=== PATIENT | male | born 1975 | race Asian ===

== ENCOUNTER 2017-05-23 08:29 | Emergency (ER) | payer OTHER ==
[2017-05-23 08:47] VITALS: TEMP 98.3
[2017-05-23] MEDS ORDERED: ONDANSETRON 4 MG/2 ML VIAL IVP ONE (10:04)
--- NOTE | 2017-05-23 10:05 | EDPHY ---
General Time Seen by Provider: 05/23/17 09:44 Narrative: CHIEF COMPLAINT: Left foot pain HISTORY OF PRESENT ILLNESS: Patient complains of left foot pain. First noticed this last night. It is a 10 /10 pain. It is located on the dorsum of the left foot. Radiates into the ankle only. There is no calf pain. No popliteal pain. No thigh pain. No chest pain or shortness of breath. Too painful to bear weight. Feels warm to him. No numbness. No trauma or injury. He is concerned because he has had bone transplant to that ankle 8 years ago. He is worried about infection. No previous history of venous thrombolic event. No other associated complaints or modifying factors. REVIEW OF SYSTEMS: Ten systems reviewed and are negative unless otherwise noted in the HPI PCP: Dr. Blue SPECIALISTS: Dr. Rhodes, [facility] Dr. Delacruz, [facility] PAST MEDICAL HISTORY: Multiple "bone" diagnoses, osteonecrosis left foot PAST SURGICAL HISTORY: Right knee stem cell transplant, left foot bone transplant SOCIAL HISTORY: Nonsmoker. Occasional alcohol use. No drug use. Works at [employer]. Lives independently FAMILY HISTORY: Noncontributory EXAMINATION General Appearance: Alert, no distress Head: normocephalic, atraumatic Eyes: Pupils equal and round, no conjunctival pallor or injection ENT, Mouth: Mucous membranes moist Neck: Normal inspection, supple, non-tender Respiratory: Lungs are clear to auscultation. No wheeze, rhonchi or crackles Cardiovascular: Regular rate and rhythm. No murmur. Symmetric DP pulses 2+. Symmetric PT pulses 2+. Neurological: A&O, nonfocal, strength is 5/5 in both ankles and knees. No foot drop. Normal proprioception left great toe Skin: Warm and dry, no rash. Mild warmth to the dorsal left foot. No fluctuance or induration. Very mild erythema of the dorsum left foot. Extremities: Tenderness of the left midfoot with palpation only. No tenderness of the left calcaneus. No tenderness of the left calf, [place], knee or thigh. Range of motion of the knees and ankle symmetric. No pedal edema. No palpable cords. No pain with passive dorsiflexion of the left ankle. No crepitus or fluctuance. Psychiatric: Mood and affect normal DIFFERENTIAL DIAGNOSES: Including but not limited to DVT, cellulitis, osteomyelitis, osteonecrosis, gout MDM: 10:05 a.m. Left foot pain with inability to ambulate. Vital signs were well within normal limits. I do not appreciate any necrosis, gangrene, fluctuance or obvious signs of DVT or infection. Given the patient's history of necrosis, I have ordered x-ray, laboratory studies and DVT study to rule out DVT. Laboratory studies pending. Morphine has been ordered IV. He is resting comfortably in no acute distress. 10:40 a.m. Notified by radiologist Dr. Tolentino. Ultrasound of the lower extremities negative for DVT or Smith cyst. 10:50 a.m. Plain film of the foot has been read as no acute osseous abnormality. Chronic changes noted. Laboratory studies pending. 11:20 a.m. Laboratory studies are all within normal limits. I have re-evaluated the patient. He remains neuro intact with vital signs stable. Suspect early cellulitis and less likely gout. I do not appreciate any evidence of abscess or osteomyelitis. No evidence of gangrene or necrosis. No evidence of necrotizing fasciitis. His laboratory studies are all within normal limits including a normal sedimentation rate. I discussed discharge home with pain medication, Bactrim and Keflex. We discussed colchicine but no indomethacin as he has anaphylactic reaction ibuprofen. He agrees with this plan. We discussed strict ED precautions for any worsening pain, fever, redness, warmth or crepitus to the foot is demonstrated. He is comfortable with this as well. He will contact his established physicians for evaluation on Friday. He is to return here if no improvement within 24 hr. Discharged home stable condition. SUPERVISION: Patient was independently examined, but I discussed the case with my secondary supervising physician Dr. Amaral - Diagnostics Imaging Results: Imaging Impressions Extremity Venous Study 05/23/17 10:04 Impression: No evidence of deep vein thrombosis. Findings discussed with Khalif Hernandez 05/23/2017 at 10:41. Foot X-Ray 05/23/17 10:04 Impression: Sequela of prior remote postoperative change to the ankle with some secondary degenerative osteoarthrosis, but no acute osseous abnormality identified. - History Smoking Status: Never smoked - Objective Vital Signs: Initial Vital Signs Temperature (C) 98.3 F 05/23/17 08:42 Heart Rate 87 05/23/17 08:42 Respiratory Rate 17 05/23/17 08:42 Blood Pressure 131/86 H 05/23/17 08:42 O2 Sat (%) 97 05/23/17 08:42 O2 Delivery Mode Room Air Allergies/Adverse Reactions: ibuprofen Allergy (Intermediate, Verified 05/07/11 09:32) Penicillins Allergy (Intermediate, Verified 05/07/11 09:32) Home Medications: Medication Instructions Recorded ALLOPURINOL [Allopurinol 300 mg] 300 mg PO DAILY 05/07/11 [place]-3 Acid Ethyl Esters [Lovaza] 1 gm PO 05/07/11 Cephalexin [Keflex (*)] 500 mg PO QID #40 cap 05/23/17 Colchicine 1.2 mg PO ONCE #2 capsule 05/23/17 Sulfamethox/Tmp 800/160 mg 1 tab PO BID 10 Days tab 05/23/17 [Bactrim Ds] oxyCODONE HCL/ACETAMINOPHEN 1 each PO Q4-6PRN PRN #7 tablet 05/23/17 [Percocet 5-325 mg Tablet] Laboratory Results: Laboratory Results 05/23/17 10:10 05/23/17 10:10 05/23/17 05/23/17 10:10 10:10 WBC 8.16 10^3/uL 10^3/uL (3.80-9.50) RBC 5.50 10^6/uL 10^6/uL (4.40-6.38) Hgb 16.6 g/dL g/dL (13.7-17.5) Hct 48.0 % % (40.0-51.0) MCV 87.3 fL fL (81.5-99.8) MCH 30.2 pg pg (27.9-34.1) MCHC 34.6 g/dL g/dL (32.4-36.7) RDW 12.7 % % (11.5-15.2) Plt Count 218 10^3/uL 10^3/uL (150-400) MPV 9.4 fL fL (8.7-11.7) Neut % (Auto) 69.1 % % (39.3-74.2) Lymph % (Auto) 19.0 % % (15.0-45.0) [place] % (Auto) 9.4 % % (4.5-13.0) Eos % (Auto) 1.7 % % (0.6-7.6) Baso % (Auto) 0.4 % % (0.3-1.7) Nucleat RBC Rel Count 0.0 % % (0.0-0.2) Absolute Neuts (auto) 5.64 10^3/uL 10^3/uL (1.70-6.50) Absolute Lymphs (auto) 1.55 10^3/uL 10^3/uL (1.00-3.00) Absolute Monos (auto) 0.77 10^3/uL 10^3/uL (0.30-0.80) Absolute Eos (auto) 0.14 10^3/uL 10^3/uL (0.03-0.40) Absolute Basos (auto) 0.03 10^3/uL 10^3/uL (0.02-0.10) Absolute Nucleated RBC 0.00 10^3/uL 10^3/uL (0-0.01) Immature Gran % 0.4 % % (0.0-1.1) Seg Neutrophils % 71 % % Band Neutrophils % 2 % % Lymphocytes % 19 % % Monocytes % 5 % % Eosinophils % 3 % % Immature Gran # 0.03 10^3/uL 10^3/uL (0.00-0.10) Absolute Seg Neuts 5.79 10^/uL 10^/uL (1.70-6.50) Absolute Band Neuts 0.16 10^3/uL 10^3/uL (0.00-0.70) Absolute Lymphocytes 1.55 10^3/uL 10^3/uL (1.00-3.00) Absolute Monocytes 0.41 10^3/uL 10^3/uL (0.30-0.80) Absolute Eosinophils 0.24 10^3/uL 10^3/uL (0.03-0.40) Platelet Estimate ADEQUATE (ADEQ) ESR 7 MM/HR MM/HR (0-15) Sodium 142 mEq/L mEq/L (135-145) Potassium 4.7 mEq/L mEq/L (3.5-5.2) Chloride 107 mEq/L mEq/L (97-110) Carbon Dioxide 25 mEq/l mEq/l (22-31) Anion Gap 10 mEq/L mEq/L (8-16) BUN 10 mg/dL mg/dL (7-23) Creatinine 0.8 mg/dL mg/dL (0.7-1.3) Estimated GFR > 60 Glucose 95 mg/dL mg/dL (70-100) Calcium 9.5 mg/dL mg/dL (8.5-10.4) Creatine Kinase 156 IU/L IU/L (0-224) Medications Given: Discontinued Medications Morphine Sulfate (Morphine) 4 mg IVP EDNOW ONE Stop: 05/23/17 10:05 Last Admin: 05/23/17 10:11 Dose: 4 mg Ondansetron HCl (Zofran) 4 mg IVP EDNOW ONE Stop: 05/23/17 10:05 Last Admin: 05/23/17 10:11 Dose: 4 mg Departure - Departure Disposition: Home, Routine, Self-Care Clinical Impression: Cellulitis of foot without toes, Acute pain of left foot Condition: Good Instructions: Cellulitis (ED) Additional Instructions: 1. Bactrim as prescribed to completion for 10 days 2. Keflex as prescribed to completion for 10 days 3. Pain medication as prescribed as needed 4. Return to emergency department in 24 hr if no significant improvement in symptoms 5. Strict ED precautions for worsening pain, redness, warmth, fluctuance, fever Referrals: Mara Ortiz PA [Primary Care Provider] - As per Instructions Stand Alone Forms: Work Excuse Prescriptions: Cephalexin [Keflex (*)] 500 mg PO QID #40 cap Colchicine 1.2 mg PO ONCE #2 capsule oxyCODONE HCL/ACETAMINOPHEN [Percocet 5-325 mg Tablet] 1 each PO Q4-6PRN PRN #7 tablet PRN Reason: Pain, Breakthrough Sulfamethox/Tmp 800/160 mg [Bactrim Ds] 1 tab PO BID 10 Days tab
[2017-05-23 10:16] LABS: PLATELET COUNT 218 10^3/uL (150-400)
[2017-05-23 10:32] LABS: CREATINE KINASE 156 IU/L (0-224)
[2017-05-23 11:45] VITALS: BP 126/81; PULSE 72; RESP 18; O2SAT 96
== END 2017-05-23 11:45 | disposition home or self-care (01) ==
DX: L03.116 Cellulitis of left lower limb (principal)
CPT/HCPCS: 96374; J2270; J2405

== ENCOUNTER 2017-06-03 12:10 | Emergency (ER) | payer OTHER ==
[2017-06-03 12:23] VITALS: RESP 18
--- NOTE | 2017-06-03 12:53 | EDPHY ---
H & P Stated Complaint: RLE pain, swelling knee down since Friday Time Seen by Provider: 06/03/17 12:24 HPI/ROS: CHIEF COMPLAINT: Right leg painful and swollen History by patient HISTORY OF PRESENT ILLNESS: 41-year-old man with a history of bone cancer in his left talus in the past who was treated for cellulitis and possibly gout in his left ankle 2 weeks ago presents today complaining of 3 days of increasing pain and swelling in his right leg. Patient states that he finished the antibiotics for his left ankle 3 days ago. He was also given colchicine at that time. Ankle did improve on these medications. Then he woke up on Friday with his right leg painful swollen around his ankle and this has progressed to involve his knee over the last 24-48 hours. He felt somewhat sweaty this morning but denies any fever. It is difficult to be weight bear due to the pain. He saw his primary care physician yesterday who gave him meloxicam and took some blood tests. The meloxicam has given him no relief. He said he was told to return to the ER if it did not get better so here he is. There is no family history of prior history of DVT. Patient did have an ultrasound of his left leg 2 weeks ago when he had the left leg symptoms. He denies any chest pain, shortness of breath or pleuritic symptoms. He says he has had a decreased appetite which he relates to taking the antibiotics. He is otherwise feeling well. Patient has a history of what he says is"osteonecrosis and"in his right knee for which he was treated with a stem-cell injection several years ago but that his knee does not normally swell up or get painful since that time. REVIEW OF SYSTEMS: As in HPI, and all other systems reviewed and are negative Source: Patient - Personal History Current Tetanus/Diphtheria Vaccine: Yes - Medical/Surgical History Hx Asthma: No Hx Chronic Respiratory Disease: No Hx Diabetes: No Hx Cardiac Disease: No Hx Renal Disease: No Hx Cirrhosis: No Hx Alcoholism: No Hx HIV/AIDS: No Hx Splenectomy or Spleen Trauma: No Other PMH: Bone transplant left left leg. stem cell transplant - Social History Smoking Status: Never smoked - Physical Exam Exam: General Appearance: Alert and no distress. Head: Normocephalic, atraumatic Eyes: Pupils equal and round no injection. Extraocular movements are intact. Musculoskeletal: Neck is supple and nontender. Extremities: Right leg positive nonpitting edema to above the knee with diffuse tenderness and calor, no redness, positive scattered petechiae, DP pulses 2+ and equal to the left, distal sensation intact, full range of motion of right knee ankle and toes but with pain. Positive old surgical s scar. Left leg: Unremarkable Skin: No rashes or lesions except as described above. Constitutional: Initial Vital Signs Temperature (C) 37.1 C 06/03/17 12:18 Heart Rate 92 06/03/17 12:18 Respiratory Rate 18 06/03/17 12:18 Blood Pressure 144/79 H 06/03/17 12:18 O2 Sat (%) 95 06/03/17 12:18 O2 Delivery Mode Room Air Allergies/Adverse Reactions: ibuprofen Allergy (Intermediate, Verified 06/03/17 12:23) Hives Penicillins Allergy (Intermediate, Verified 06/03/17 12:23) Swelling/neck,face,throat Home Medications: Medication Instructions Recorded Cephalexin 500 mg PO BID #20 capsule 06/03/17 Meloxicam 06/03/17 [place]-3 06/03/17 Medical Decision Making - Diagnostics Imaging Results: Imaging Impressions Extremity Venous Study 06/03/17 12:42 Impression: No evidence of deep vein thrombosis. Findings called to the [facility] 06/03/2017 at 14:17. Ankle X-Ray 06/03/17 12:44 Impression: 1. Soft tissue swelling with ankle joint effusion. 2. Medial talar dome defect of unknown chronicity. 2. Right Knee, 3 views History: Pain and swelling, without trauma Findings: There is possibly subtle demineralization of the mid weightbearing portion of the subcortical medial femoral condyle. There is a small suprapatellar knee joint effusion. Alignment and is anatomic. There is no arthritis, chondrocalcinosis or erosive change. Impression: Subtle demineralization of the medial femoral condyle. This could possibly represent early evidence of a bone infarct. Is this patient a diabetic or have a history of pancreatitis or scuba driving? Consider knee MRI for further evaluation. Knee X-Ray 06/03/17 12:44 Impression: 1. Soft tissue swelling with ankle joint effusion. 2. Medial talar dome defect of unknown chronicity. 2. Right Knee, 3 views History: Pain and swelling, without trauma Findings: There is possibly subtle demineralization of the mid weightbearing portion of the subcortical medial femoral condyle. There is a small suprapatellar knee joint effusion. Alignment and is anatomic. There is no arthritis, chondrocalcinosis or erosive change. Impression: Subtle demineralization of the medial femoral condyle. This could possibly represent early evidence of a bone infarct. Is this patient a diabetic or have a history of pancreatitis or scuba driving? Consider knee MRI for further evaluation. Imaging: Discussed imaging studies w/ fisher scallop Radiologist ED Course/Re-evaluation: 41-year-old man who recently had episode of cellulitis in his left foot returns today with right leg swelling and tenderness involving right foot ankle and knee. Patient has full range of motion of his ankles and I do not think the joints are involved. Patient declined pain medicine in the emergency department. Labs are notable for elevated ESR. CKs within normal limits. X- ray shows no evidence of new acute problem. Radiologist did note that vasculitis could cause the soft tissue findings that we observe on the x-ray and clinically. Ultrasound shows no evidence of DVT. At this point I think given the fact that the entire lower leg is in vault and that the joints themselves do not appear to be inflamed or infected patient likely has a cellulitis and will go ahead and treat him for this with a dose of IV Ancef and out on oral Keflex. Patient has a history of penicillin allergy but tolerated oral Keflex for his infection in his left foot previously without difficulty. I requested the patient follow up for recheck with his primary care physician tomorrow and sooner to the ER if it seems to be getting worse. The patient does not respond antibiotics vasculitis would be another diagnostic consideration. Patient understands and is agreeable to this plan. - Data Points Laboratory Results: Laboratory Results 06/03/17 12:50 06/03/17 12:50 06/03/17 06/03/17 12:50 12:50 Hct 44.3 % % (40.0-51.0) ESR 28 MM/HR H MM/HR (0-15) Sodium 141 mEq/L mEq/L (135-145) Potassium 4.3 mEq/L mEq/L (3.5-5.2) Chloride 106 mEq/L mEq/L (97-110) Carbon Dioxide 23 mEq/l mEq/l (22-31) Anion Gap 12 mEq/L mEq/L (8-16) BUN 12 mg/dL mg/dL (7-23) Creatinine 1.0 mg/dL mg/dL (0.7-1.3) Estimated GFR > 60 Glucose 116 mg/dL H mg/dL (70-100) Calcium 9.3 mg/dL mg/dL (8.5-10.4) Creatine Kinase 130 IU/L IU/L (0-224) C-Reactive Protein Pending Medications Given: Discontinued Medications Cefazolin Sodium 1 gm/ Sodium (Chloride) 100 mls @ 400 mls/hr IV EDNOW ONE PRN Reason: Protocol Stop: 06/03/17 15:10 Last Admin: 06/03/17 15:03 Dose: 100 mls Departure - Departure Disposition: Home, Routine, Self-Care Clinical Impression: Cellulitis of right lower extremity Condition: Good Instructions: Cellulitis (ED) Additional Instructions: You were seen by Dr. Renay Teixeira today. Will treat for an infection in your leg. Take antibiotics as prescribed with her 1st dose tonight. Return immediately if the leg seems to be worsening of the swelling and redness spreading. Please have your primary care physician recheck your leg tomorrow. Return for any worsening or new concerns. Referrals: Mara Ortiz PA [Primary Care Provider] - As per Instructions Prescriptions: Cephalexin 500 mg PO BID #20 capsule
[2017-06-03 13:14] LABS: CREATINE KINASE 130 IU/L (0-224)
[2017-06-03] MEDS ORDERED: ceFAZolin 1 GM VIAL ONE (14:55)
[2017-06-03] MEDS ORDERED: ceFAZolin 1 GM in NS 100 ML IV ONE (14:56)
[2017-06-03 15:16] VITALS: O2SAT 94
[2017-06-03 15:17] VITALS: BP 107/68; PULSE 88; TEMP 99.5
== END 2017-06-03 15:27 | disposition home or self-care (01) ==
LOC: CED 12:10
DX: L03.115 Cellulitis of right lower limb (principal)
CPT/HCPCS: 73562-PO; 73610-PO; 80048-PO; 82550-PO; 85652-PO; 93971-PO; 96365; J0690

== ENCOUNTER 2017-08-30 06:06 | Emergency (ER) | payer OTHER ==
[2017-08-30] MEDS ORDERED: ONDANSETRON 4 MG/2 ML VIAL IVP ONE (06:16)
[2017-08-30] MEDS ORDERED: NS 1,000 ML IV ONE ×2 (06:16)
[2017-08-30] MEDS ORDERED: KETOROLAC 30 MG/1 ML SDV IVP ONE (06:16)
[2017-08-30] MEDS ORDERED: HYDROmorphONE/DILAUDID 2 MG/ML INJ IVP ONE ×3 (06:16→09:26)
[2017-08-30] MEDS ORDERED: HYDROmorphONE/DILAUDID 1 MG/ML INJ ONE ×3 (06:21→09:27)
--- NOTE | 2017-08-30 06:29 | EDPHY ---
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 The pain is sharp, does not radiate, has been constant and is rated as severe. He has cherri hematuria. He has just developed vomiting while in the emergency department. He has no prior history of similar pain.. REVIEW OF SYSTEMS Constitutional: No fever, no chills. Eyes: No discharge. ENT: No sore throat. Cardiovascular: No chest pain, no palpitations. Respiratory: No cough, no shortness of breath. Gastrointestinal: See HPI Genitourinary: No hematuria. Musculoskeletal: No back pain. Skin: No rashes. Neurological: No headache. 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 Soc Hx: Housed PHYSICAL General Appearance: Alert, uncomfortable appearing Eyes: Pupils equal and round no pallor or injection ENT, Mouth: Mucous membranes moist Respiratory: There are no retractions, lungs are clear to auscultation Cardiovascular: Regular rate and rhythm Gastrointestinal: Abdomen is soft and non-tender, no masses, bowel sounds normal Back: There is a left-sided flank tenderness to palpation Neurological: A&O, moves all extremities Skin: Warm and dry, no rashes Musculoskeletal: Neck is supple non tender Extremities: symmetrical, full range of motion Psychiatric: Patient is oriented X 3, there is no agitation (Riguzzi,Jacqueline) Constitutional: Initial Vital Signs Temperature (C) 36.4 C 08/30/17 06:08 Heart Rate 88 08/30/17 06:08 Respiratory Rate 16 08/30/17 06:08 Blood Pressure 133/85 H 08/30/17 06:08 O2 Sat (%) 96 08/30/17 06:08 O2 Delivery Mode Room Air Allergies/Adverse Reactions: ibuprofen Allergy (Intermediate, Verified 06/03/17 12:23) Hives Penicillins Allergy (Intermediate, Verified 06/03/17 12:23) Swelling/neck,face,throat Home Medications: Medication Instructions Recorded Keflex 08/30/17 Meloxicam 08/30/17 Ondansetron Odt [Zofran Odt 4 mg 4 mg PO Q4 PRN #10 tab 08/30/17 (*)] Tamsulosin HCl [Flomax 0.4 MG (*)] 0.4 mg PO DAILY #10 cap 08/30/17 oxyCODONE HCL/ACETAMINOPHEN 1 each PO Q6H PRN #15 tablet 08/30/17 [Percocet 5-325 mg Tablet] Medical Decision Making - Diagnostics Imaging Results: Imaging Impressions Abdomen/Pelvis CT 08/30/17 06:43 Impression: 7 mm left UPJ calculus with mild hydronephrosis. 8 mm nonobstructing calculus lower pole left kidney. The study was performed as an emergency on-call case and discussed by telephone with Dr. Krystyna Ramos at 7:20 AM hrs. The final interpretation is concordant with the original communication. Attention: This CT examination is specifically designed to evaluate patients who are clinically suspected of having acute obstructive uropathy. This examination does not use radiographic contrast, and as such, provides only a limited evaluation of the abdomen, pelvis and retroperitoneum. If there is further clinical suspicion for pathological conditions other than obstructive uropathy, a complete CT evaluation of the abdomen and pelvis utilizing intravenous, oral, and rectal contrast should be considered. Procedures: Bedside left flank Ultrasound- performed and interpreted by me. Indication: Left flank pain Findings: Kidney stones visualized within the kidney, there is mild hydronephrosis, there is no free fluid Impression: Mild left-sided hydronephrosis (Jacqueline Edgar) ED Course/Re-evaluation: 30: pain has returned. Dilaudid 0.5 mg IV and Percocet 2 tablets orally given. 1040: feels much better, wants to go home. f/u instructions given. (Krystyna Ramos) Differential Diagnosis: This is a 41-year-old male who presents with 1 hr of sudden onset left-sided flank pain associated with hematuria and vomiting. On arrival here, he is quite uncomfortable with left-sided flank tenderness. Differential diagnosis includes ureterolithiasis, nephrolithiasis, less likely AAA. In the emergency department IV line is established and patient was given medication for pain as well as antiemetics. Labs were checked and revealed hematuria only. His pain improved somewhat on reassessment. He was given a 2nd dose of IV Dilaudid. I plan for CT scan of his abdomen pelvis to evaluate for ureterolithiasis. At 7:00 a.m., the case is signed out to Dr. Ramos pending CT scan results. Patient is feeling better. (Jacqueline Edgar) - Data Points Laboratory Results: Laboratory Results 08/30/17 06:25 18 06:17 08/30/1718 08/30/17 06:25 06:17 06:14 WBC 6.83 10^3/uL 10^3/uL (3.80-9.50) RBC 5.27 10^6/uL 10^6/uL (4.40-6.38) Hgb 15.5 g/dL g/dL (13.7-17.5) Hct 45.3 % % (40.0-51.0) MCV 86.0 fL fL (81.5-99.8) MCH 29.4 pg pg (27.9-34.1) MCHC 34.2 g/dL g/dL (32.4-36.7) RDW 13.2 % % (11.5-15.2) Plt Count 247 10^3/uL 10^3/uL (150-400) MPV 9.7 fL fL (8.7-11.7) Neut % (Auto) 48.1 % % (39.3-74.2) Lymph % (Auto) 37.8 % % (15.0-45.0) Hall % (Auto) 9.7 % % (4.5-13.0) Eos % (Auto) 3.7 % % (0.6-7.6) Baso % (Auto) 0.4 % % (0.3-1.7) Nucleat RBC Rel Count 0.0 % % (0.0-0.2) Absolute Neuts (auto) 3.29 10^3/uL 10^3/uL (1.70-6.50) Absolute Lymphs (auto) 2.58 10^3/uL 10^3/uL (1.00-3.00) Absolute Monos (auto) 0.66 10^3/uL 10^3/uL (0.30-0.80) Absolute Eos (auto) 0.25 10^3/uL 10^3/uL (0.03-0.40) Absolute Basos (auto) 0.03 10^3/uL 10^3/uL (0.02-0.10) Absolute Nucleated RBC 0.00 10^3/uL 10^3/uL (0-0.01) Immature Gran % 0.3 % % (0.0-1.1) Immature Gran # 0.02 10^3/uL 10^3/uL (0.00-0.10) Sodium 144 mEq/L mEq/L (135-145) Potassium 4.4 mEq/L mEq/L (3.3-5.0) Chloride 109 mEq/L mEq/L (97-110) Carbon Dioxide 21 mEq/l L mEq/l (22-31) Anion Gap 14 mEq/L mEq/L (8-16) BUN 14 mg/dL mg/dL (7-23) Creatinine 0.9 mg/dL mg/dL (0.7-1.3) Estimated GFR > 60 Glucose 106 mg/dL H mg/dL (70-100) Calcium 9.3 mg/dL mg/dL (8.5-10.4) Urine Color YELLOW Urine Appearance MODERATELY TURBID Urine pH 5.0 (5.0-7.5) Ur Specific [place] 1.018 (1.002-1.030) Urine Protein 1+ H (NEGATIVE) Urine Ketones TRACE H (NEGATIVE) Urine Blood 3+ H (NEGATIVE) Urine Nitrate NEGATIVE (NEGATIVE) Urine Bilirubin NEGATIVE (NEGATIVE) Urine Urobilinogen NEGATIVE EU EU (0.2-1.0) Ur Leukocyte Esterase NEGATIVE (NEGATIVE) Urine RBC 50-182 /hpf H /hpf (0-3) Urine WBC 1-3 /hpf /hpf (0-3) Ur Epithelial Cells NONE SEEN /lpf /lpf (NONE-1+) Urine Mucus TRACE /lpf /lpf (NONE-1+) Urine Glucose NEGATIVE (NEGATIVE) Medications Given: Discontinued Medications Hydromorphone HCl (Dilaudid) 0.5 mg IVP EDNOW ONE Stop: 06/09/18 06:17 Last Admin: 08/30/17 06:24 Dose: 0.5 mg Hydromorphone HCl (Dilaudid) 0.5 mg IVP EDNOW ONE Stop: 08/30/17 06:45 Last Admin: 08/30/17 06:51 Dose: 0.5 mg Hydromorphone HCl (Dilaudid) 0.5 mg IVP EDNOW ONE Stop: 08/30/17 09:27 Last Admin: 08/30/17 09:29 Dose: 0.5 mg Sodium Chloride (Ns) 1,000 mls @ 0 mls/hr IV EDNOW ONE; Wide Open PRN Reason: Protocol Stop: 08/30/17 06:17 Last Admin: 08/30/17 06:23 Dose: 1,000 mls Sodium Chloride (Ns) 1,000 mls @ 0 mls/hr IV EDNOW ONE; Wide Open PRN Reason: Protocol Stop: 08/30/17 06:17 Last Admin: 08/30/17 06:24 Dose: 1,000 mls Lidocaine HCl 170 mg/ Sodium (Chloride) 117 mls @ 600 mls/hr IV EDNOW ONE Stop: 08/30/17 07:27 Last Admin: 08/30/17 07:41 Dose: 117 mls Ketorolac Tromethamine (Toradol) 15 mg IVP EDNOW ONE Stop: 08/30/17 06:17 Last Admin: 08/30/17 06:25 Dose: 15 mg Ondansetron HCl (Zofran) 4 mg IVP EDNOW ONE Stop: 08/30/17 06:17 Last Admin: 08/30/17 06:25 Dose: 4 mg Ondansetron HCl (Zofran Odt 4 Mg Prepack#2) 1 btl TAKEHOME EDNOW ONE Stop: 08/30/17 06:33 Last Admin: 08/30/17 10:31 Dose: 1 btl Oxycodone/Acetaminophen (Percocet 5/325mg Prepack#4) 1 btl TAKEHOME EDNOW ONE Stop: 08/30/17 06:33 Last Admin: 08/30/17 10:32 Dose: 1 btl Oxycodone/Acetaminophen (Percocet 5/325) 2 tab PO EDNOW ONE Stop: 08/30/17 09:27 Last Admin: 08/30/17 10:01 Dose: 2 tab Departure - Departure Disposition: Home, Routine, Self-Care Clinical Impression: Ureterolithiasis Condition: Good Instructions: Oxycodone/Acetaminophen (By mouth), Ondansetron (By mouth), Renal Colic (ED) Additional Instructions: 1. Take your meloxicam as already prescribed. 2. Percocet as needed for severe pain 3. Flomax as directed 4. Zofran as needed for nausea 5. Strain urine as directed 6. Return to the Emergency Department for intractable pain, fever or vomiting. 7. Followup with the urologist you have been referred to for unimproved symptoms. Referrals: Mara Ortiz PA [Primary Care Provider] - As per Instructions Jason Samaniego MD [Medical Doctor] - As per Instructions Prescriptions: Ondansetron Odt [Zofran Odt 4 mg (*)] 4 mg PO Q4 PRN #10 tab PRN Reason: Nausea/Vomiting, Can'T Take Po oxyCODONE HCL/ACETAMINOPHEN [Percocet 5-325 mg Tablet] 1 each PO Q6H PRN #15 tablet PRN Reason: Pain, Breakthrough Tamsulosin HCl [Flomax 0.4 MG (*)] 0.4 mg PO DAILY #10 cap
[2017-08-30] MEDS ORDERED: OXYCODONE/APAP 5/325MG PREPACK#4 BTL TAKEHOME ONE ×2 (06:32→10:25)
[2017-08-30] MEDS ORDERED: ONDANSETRON 4MG PREPACK#2 BTL TAKEHOME ONE ×2 (06:32→10:25)
[2017-08-30 06:39] LABS: PLATELET COUNT 247 10^3/uL (150-400)
[2017-08-30] MEDS ORDERED: IOPAMIDOL (ISOVUE-300) 100 ML BTL ONE (06:50)
[2017-08-30] MEDS ORDERED: NS IV ONE (07:16)
[2017-08-30] MEDS ORDERED: LIDOCAINE IV ONE (07:16)
[2017-08-30] MEDS ORDERED: OXYCODONE/APAP 5/325 TAB PO ONE (09:26)
[2017-08-30 10:38] VITALS: BP 120/89
== END 2017-08-30 10:36 | disposition home or self-care (01) ==
DX: N20.1 Calculus of ureter (principal); E86.9 Volume depletion, unspecified
CPT/HCPCS: 96365; J1170; J1885; J2405; Q9967

== ENCOUNTER 2017-09-07 05:40 | Emergency (ER) | payer OTHER ==
[2017-09-07] MEDS ORDERED: NS 1,000 ML IV ONE ×2 (06:00→07:09)
[2017-09-07] MEDS ORDERED: ONDANSETRON 4 MG/2 ML VIAL IVP ONE (06:12)
[2017-09-07] MEDS ORDERED: HYDROmorphONE/DILAUDID 2 MG/ML INJ IVP SCH (06:15)
--- NOTE | 2017-09-07 06:41 | EDPHY ---
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 kidney stone - Family History Significant Family History: No pertinent family hx - Social History Smoking Status: Never smoked Alcohol Use: None Drug Use: None Time Seen by Provider: 09/07/17 06:01 HPI/ROS: CHIEF COMPLAINT: Left flank pain HISTORY OF PRESENT ILLNESS: 41-year-old with 1st seen on August 30 at the [facility] for left flank pain. He ultimately ruled in for an 8 mm ureteral - pelvic junction stone. Really done quite well, sometimes he has been taking the p.r.n. Percocet is gone through all of the 15 tablets in the course of the last 8 days. However, approximately 4 hr ago he awoke with pain, could not fall back to sleep. The pain is since escalated, keeping awake during the whole time. It is in the same area as it was a 1 week ago in the same sensation, achiness of a moderate to severe Mag 2. At times it did cause him to vomit total 4 times this time around. Where he has he did have some pink urine last visit it is now clear still to the naked eye. He has had no fevers or chills or sense of dysuria. He has yet to follow up with Urology nor his PCP P: No worse with movement or twisting Q: Achiness R: Left flank radiate around to the front S: Moderate to severe T: Worse 4 hr ago onset 1 week ago Chart reviewed from last week's visit Patient reports no prior history of substance abuse, no history of depression, no family history of substance abuse. REVIEW OF SYSTEMS: Constitutional: No fever, no chills. Eyes: No discharge ENT: No sore throat. Cardiovascular: No chest pain, no palpitations. Respiratory: No cough, shortness of breath, or wheezing. Gastrointestinal: No nausea vomiting or diarrhea. No abdominal pain. Genitourinary: No hematuria or frequency. Musculoskeletal: See above Skin: No rashes. Neurological: No headache. 10 point ROS otherwise negative (Edson Breen) - Physical Exam Exam: General Appearance: Alert, a little clammy, rocking in pain laying on his left side. Afebrile. Normal phonation. No respiratory distress. Eyes: Pupils equal and round no pallor or injection. No icterus ENT, Mouth: Mucous membranes slightly dry Pharynx without erythema or exudate. TM Clear. Neck: No adenopathy. Supple. No JVD. Trachea in midline. Respiratory: There are no retractions, lungs are clear to auscultation. Chest wall: Nontender to palpation. No crepitus. Cardiovascular: Regular rate and rhythm. Abdomen: Soft, no masses, bowel sounds normal. Femoral pulses equal. There is left CVA tenderness reproducing the pain. There is also left upper quadrant and left lower quadrant pain, tenderness Neurological: Ox3. No motor weakness. Sensation intact. Gait nl. Skin: Warm and dry, no rashes. Musculoskeletal: No joint swelling. Extremities: No edema. Homans sign negative. No cords. Psychiatric: Normal affect. Patient is oriented X 3. There is no agitation ( Edson Breen) Constitutional: Initial Vital Signs Temperature (C) 36.8 C 09/07/17 05:43 Heart Rate 78 09/07/17 05:43 Respiratory Rate 18 09/07/17 05:43 Blood Pressure 131/84 H 09/07/17 05:43 O2 Sat (%) 95 09/07/17 05:43 O2 Delivery Mode Room Air Allergies/Adverse Reactions: ibuprofen Allergy (Intermediate, Verified 06/03/17 12:23) Hives Penicillins Allergy (Intermediate, Verified 06/03/17 12:23) Swelling/neck,face,throat Home Medications: Medication Instructions Recorded Meloxicam 08/30/17 Ondansetron Odt [Zofran Odt 4 mg 4 mg PO Q4 PRN #10 tab 08/30/17 (*)] Tamsulosin HCl [Flomax 0.4 MG (*)] 0.4 mg PO DAILY #10 cap 08/30/17 oxyCODONE HCL/ACETAMINOPHEN 1 each PO Q6H PRN #15 tablet 08/30/17 [Percocet 5-325 mg Tablet] Tamsulosin HCl [Flomax] 0.4 mg PO DAILY8 #4 cap 09/07/17 oxyCODONE/APAP 5/325 [Percocet 1 tab PO Q4-6PRN PRN #14 tab 09/07/17] Medical Decision Making - Diagnostics Imaging Results: Noncontrast CT abdomen pelvis reviewed by me and discussed with Dr. Carvalho shows 7 mm stone still present. It has moved somewhat now to the ureterovesical junction. His mild hydronephrosis however has increased to moderate hydronephrosis. There is a 8 mm stone in the lower pole of the left kidney that is nonobstructing. (Hugh Sofia) ED Course/Re-evaluation: Patient was started on IV Dilaudid for his discomfort. As he is already on meloxicam we will forego any ketorolac though he did get some on his last visit and tolerated well-note his ibuprofen allergies noted. Ultimately his basic point of care testing showed: Creatinine 1.7, up from 0.9. He was better after the Dilaudid, but needed an additional dose. At change of shift, urinalysis to check for bacteruria was pending, though POC testing did show 3+ blood. (Edson Breen) I saw this patient at 7:00 a.m.. He continues to have some discomfort despite 2 mg of Dilaudid. Patient has allergies to ibuprofen though does take meloxicam. However because of this I have elected not to give him Toradol. I also see that the patient has increased his creatinine from 0.9 to 1.7 today. Point of care testing apparently showed 3+ blood. Urine has been sent to [facility] for urinalysis. I will add microscopy. Examination of the patient shows left flank discomfort. Patient and I discussed imaging studies and elevated creatinine. I have recommended CT scanning which the patient agrees to. I have ordered a L of saline for this patient Re-evaluation again at 7:45 a.m.. Patient and I discussed his CT results of increased stone and increasing hydronephrosis. The patient does not want to be admitted. We discussed risks and benefits of this. He wants to go home and follow up as an outpatient. The patient is given oral Percocet and a call is placed to Urology. I consulted and discussed case with Dr. Zazueta for Urology who will see the patient in the office. Re-evaluation 8:15 a.m. Patient and I discussed this treatment plan including criteria for return importance of follow-up and further evaluation. He expresses understanding and agreement (Hugh Sofia) Differential Diagnosis: Differential diagnosis includes, but is not limited to: Gastroenteritis, dehydration, diverticulitis, hepatitis, pancreatitis, renal colic, kidney stones, ureterolithiasis, cholecystitis, appendicitis, gastritis. (Edson Breen) Large kidney stone with elevation of creatinine and going from mild to moderate hydronephrosis. Currently no evidence for urinary tract infection. Patient wishes to be treated as an outpatient. (Hugh Sofia) - Data Points Laboratory Results: 09/07/17 09/07/17 06:13 05:50 POC Sodium 131 mEq/L L mEq/L (135-145) POC Potassium 4.2 mEq/L mEq/L (3.3-5.0) POC Chloride 105.0 mEq/L mEq/L (97-110) POC Total CO2 23 mEq/L mEq/L (22-31) POC BUN 9 mg/dL mg/dL (7-23) POC Creatinine 1.7 mg/dL H mg/dL (0.7-1.3) POC Glucose 127 mg/dL H mg/dL (70-100) POC Calcium 9.3 mg/dL mg/dL (8.5-10.4) Urine Color YELLOW Urine Appearance CLEAR Urine pH 5.0 (5.0-7.5) Ur Specific [place] 1.018 (1.002-1.030) Urine Protein NEGATIVE (NEGATIVE) Urine Ketones NEGATIVE (NEGATIVE) Urine Blood 3+ H (NEGATIVE) Urine Nitrate NEGATIVE (NEGATIVE) Urine Bilirubin NEGATIVE (NEGATIVE) Urine Urobilinogen NEGATIVE EU EU (0.2-1.0) Ur Leukocyte Esterase NEGATIVE (NEGATIVE) Urine RBC 3-5 /hpf H /hpf (0-3) Urine WBC 1-3 /hpf /hpf (0-3) Ur Epithelial Cells TRACE /lpf /lpf (NONE-1+) Urine Mucus TRACE /lpf /lpf (NONE-1+) Urine Glucose NEGATIVE (NEGATIVE) Medications Given: Hydromorphone HCl (Dilaudid) 1 mg IVP EDNOW ZEENAT Stop: 09/17/17 06:14 Last Admin: 09/07/17 06:15 Dose: 1 mg Discontinued Medications Hydromorphone HCl (Dilaudid) 1 mg IVP EDNOW ONE Stop: 09/07/17 06:59 Last Admin: 09/07/17 06:58 Dose: 1 mg Sodium Chloride (Ns) 1,000 mls @ 0 mls/hr IV EDNOW ONE; Wide Open PRN Reason: Protocol Stop: 09/07/17 07:10 Last Admin: 09/07/17 07:13 Dose: 1,000 mls Ondansetron HCl (Zofran) 4 mg IVP ONCE ONE Stop: 09/07/17 06:13 Last Admin: 09/07/17 06:15 Dose: 4 mg Oxycodone/Acetaminophen (Percocet 5/325) 1 tab PO EDNOW ONE Stop: 09/07/17 07:57 Last Admin: 09/07/17 08:10 Dose: 1 tab Point of Care Test Results: Chemistry 09/07/17 06:13 POC Sodium 131 mEq/L L mEq/L (135-145) POC Potassium 4.2 mEq/L mEq/L (3.3-5.0) POC Chloride 105.0 mEq/L mEq/L (97-110) POC Total CO2 23 mEq/L mEq/L (22-31) POC BUN 9 mg/dL mg/dL (7-23) POC Creatinine 1.7 mg/dL H mg/dL (0.7-1.3) POC Glucose 127 mg/dL H mg/dL (70-100) POC Calcium 9.3 mg/dL mg/dL (8.5-10.4) Urine Dip Collection Date 09/07/17 Specific [place] (1.002-1.030) 1.025 PH (5.0-7.5) 5.5 Leukocytes (Negative) Negative Nitrites (Negative) Negative Protein (Negative) Negative Glucose (Negative) Negative Ketones (Negative) Negative Urobilnogen (0.2-1.0 EU) 0.2 Bilirubin (Negative) Negative Blood (Negative) 3+ Departure - Departure Disposition: Home, Routine, Self-Care Clinical Impression: Calculus of left kidney, Renal colic on left side Condition: Good Instructions: Renal Colic (ED) Additional Instructions: Drink plenty of fluids and stay hydrated. Percocet as needed for pain. Flomax to help pass the stone. Strain all urine next 2-3 days and save stone for analysis. Call Urology tomorrow morning to arrange follow-up appointment. Return for worsening symptoms. If symptoms are worsening consider going to [facility] as you may need to be admitted and we would transfer you there for admission Referrals: Patient,NotPresent [Primary Care Provider] - As per Instructions Jamaal Zazueta MD [Medical Doctor] - 1-2 days without fail Prescriptions: oxyCODONE/APAP 5/325 [Percocet 5/325] 1 tab PO Q4-6PRN PRN #14 tab PRN Reason: Pain, Moderate Tamsulosin HCl [Flomax] 0.4 mg PO DAILY8 #4 cap
[2017-09-07] MEDS ORDERED: HYDROmorphONE/DILAUDID 2 MG/ML INJ IVP ONE (06:58)
[2017-09-07] MEDS ORDERED: OXYCODONE/APAP 5/325 TAB PO ONE (07:56)
[2017-09-07 08:41] VITALS: BP 121/71
== END 2017-09-07 08:39 | disposition home or self-care (01) ==
LOC: CED 05:40
DX: N20.0 Calculus of kidney (principal); E86.9 Volume depletion, unspecified
CPT/HCPCS: 74176-PO; 80048-PO; 96374; J1170; J2405

== ENCOUNTER 2017-09-08 12:23 | Observation (INO) | payer OTHER ==
--- NOTE | 2017-09-08 14:13 | EDPHY ---
H & P Stated Complaint: Increasing left flank pain - diagnosed with kidney stone Time Seen by Provider: 09/08/17 14:13 HPI/ROS: CHIEF COMPLAINT: Kidney stone pain HISTORY OF PRESENT ILLNESS: The patient is a 41 y/o male with a recently diagnosed kidney stone who arrives complaining of worsening pain that is now radiating from his left flank to his suprapubic area. He was diagnosed with an 8mm proximal left ureteral stone on 08/30, 9 days ago, and he last saw blood in his urine at that time. He had another abdomen/pelvis CT yesterday at [facility] that showed the same stone had moved distally about 1-2cm from the UVJ with increasing hydronephrosis. His creatinine was also rising, 1.7 yesterday. He has been using Percocet for pain management with some temporary relief. He was advised to return to the ED for worsening pain or if he developed a fever; he began to feel feverish today and his pain moved lower in his abdomen and was not relieved with Percocet so he came in for evaluation. He has an appointment scheduled with Dr. Zazueta, urology, day after tomorrow. REVIEW OF SYSTEMS: A ten point review of systems was performed and is negative with the exception of the items mentioned in the HPI. Past medical history: Stem cell transplant, kidney stone Past surgical history: Bone transplant left leg Family history: Noncontributory Social history: Nonsmoker. Lives in [place]. Employed. Prior medical records reviewed including [facility] ED visit and CT report 09/07/17. General Appearance: Alert. Vital signs reviewed. Blood pressure 133/96, all else normal Eyes: Pupils equal and round, no conjunctival injection, no discharge. Anicteric. ENT, Mouth: Mucous membranes are moist, no oropharyngeal erythema or edema. Neck: No lymphadenopathy, supple. Respiratory: Lungs are clear to auscultation; no wheezes, rales, or rhonchi. Cardiovascular: Regular rate and rhythm; no murmur, rub, or gallop. Gastrointestinal: Abdomen is soft, tenderness LLQ, no guarding, no masses or organomegaly. Skin: Warm and dry, no rashes on exposed skin, normal color. Back: Nontender to palpation over the thoracolumbar spine. Left CVAT. Extremities: No lower extremity edema, no calf tenderness or swelling. Neurological: Alert and oriented. Moving all four extremities easily and equally. Psychiatric: Normal affect. - Personal History Current Tetanus Diphtheria and Acellular Pertussis (TDAP): Yes - Medical/Surgical History Hx Asthma: No Hx Chronic Respiratory Disease: No Hx Diabetes: No Hx Cardiac Disease: No Hx Renal Disease: No Hx Cirrhosis: No Hx Alcoholism: No Hx HIV/AIDS: No Hx Splenectomy or Spleen Trauma: No Other PMH: Bone transplant left leg. Stem cell transplant. Kidney stone. - Social History Smoking Status: Never smoked Constitutional: Initial Vital Signs Temperature (C) 36.7 C 09/08/17 12:23 Heart Rate 89 09/08/17 12:23 Respiratory Rate 18 09/08/17 12:23 Blood Pressure 133/96 H 09/08/17 12:23 O2 Sat (%) 95 09/08/17 12:23 O2 Delivery Mode Room Air O2 (L/minute) 2 Allergies/Adverse Reactions: ibuprofen Allergy (Intermediate, Verified 06/03/17 12:23) Hives Penicillins Allergy (Intermediate, Verified 06/03/17 12:23) Swelling/neck,face,throat Home Medications: Medication Instructions Recorded Ondansetron Odt [Zofran Odt 4 mg 4 mg PO Q4 PRN #10 tab 08/30/17 (*)] Tamsulosin HCl [Flomax 0.4 MG (*)] 0.4 mg PO DAILY #10 cap 08/30/17 oxyCODONE HCL/ACETAMINOPHEN 1 each PO Q6H PRN #15 tablet 08/30/17 [Percocet 5-325 mg Tablet] oxyCODONE/APAP 5/325 [Percocet 1 tab PO Q4-6PRN PRN #14 tab 09/07/17 5/325] Meloxicam [Mobic 15 mg] 15 mg PO 09/08/17 Medical Decision Making ED Course/Re-evaluation: This is a 41 y/o male with a recently diagnosed 8mm kidney stone who presents with worsening suprapubic pain radiating from his left flank. Plan for symptomatic management. IV, labs, UA, 0.5mg IV Dilaudid ordered. 3:30 p.m.. Patient has received 1.5 mg IV Dilaudid and 1 L IV normal saline. He continues with significant left flank pain that radiates into the suprapubic region. He has not had vomiting. He is not febrile. Urinalysis is negative for signs of infection. Chemistries are pending. Creatinine was 1.7 yesterday , increasing compared to August 30. As he has failed outpatient treatment, he is being admitted to the hospital for pain control and Urology consultation. I spoke with Dr. Lupe pena, [facility], and explained to him that the patient has a 7 to8 mm stone in the left UVJ, based on yesterday's CT scan. As above, he has had worsening pain. No evidence of urinary tract infection. His creatinine continues to be high but is somewhat improved from yesterday--1.5 today. is considering taking the patient to the operating room. He will be kept NPO. Differential Diagnosis: Flank pain including but not limited to musculoskeletal causes, kidney stone, pyelonephritis, shingles, and intra-abdominal causes such as diverticulitis and appendicitis. - Data Points Laboratory Results: Laboratory Results 09/08/17 14:25 09/08/17 09/08/17 14:25 13:57 Sodium 138 mEq/L mEq/L (135-145) Potassium 4.1 mEq/L mEq/L (3.3-5.0) Chloride 100 mEq/L mEq/L (97-110) Carbon Dioxide 29 mEq/l mEq/l (22-31) Anion Gap 9 mEq/L mEq/L (8-16) BUN 11 mg/dL mg/dL (7-23) Creatinine 1.5 mg/dL H mg/dL (0.7-1.3) Estimated GFR 52 Glucose 93 mg/dL mg/dL (70-100) Calcium 9.1 mg/dL mg/dL (8.5-10.4) Urine Color YELLOW Urine Appearance CLEAR Urine pH 6.0 (5.0-7.5) Ur Specific [place] 1.008 (1.002-1.030) Urine Protein NEGATIVE (NEGATIVE) Urine Ketones NEGATIVE (NEGATIVE) Urine Blood NEGATIVE (NEGATIVE) Urine Nitrate NEGATIVE (NEGATIVE) Urine Bilirubin NEGATIVE (NEGATIVE) Urine Urobilinogen NEGATIVE EU EU (0.2-1.0) Ur Leukocyte Esterase NEGATIVE (NEGATIVE) Urine Glucose NEGATIVE (NEGATIVE) Medications Given: Discontinued Medications Hydromorphone HCl (Dilaudid) 0.5 mg IVP EDNOW ONE Stop: 09/08/17 14:29 Last Admin: 09/08/17 14:30 Dose: 0.5 mg Hydromorphone HCl (Dilaudid) 0.5 mg IVP EDNOW ONE Stop: 09/08/17 14:30 Last Admin: 09/08/17 14:39 Dose: Not Given Hydromorphone HCl (Dilaudid) 0.5 mg IVP EDNOW ONE Stop: 09/08/17 15:02 Last Admin: 09/08/17 15:02 Dose: 0.5 mg Sodium Chloride (Ns) 1,000 mls @ 0 mls/hr IV EDNOW ONE; Wide Open PRN Reason: Protocol Stop: 09/08/17 14:30 Last Admin: 09/08/17 14:38 Dose: 1,000 mls Departure - Departure Disposition: [facility] Inpatient Acute Clinical Impression: Kidney stone on left side Condition: Good Report Scribed for: Huong George Report Scribed by: Sherrie Gonzales Date of Report: 09/08/17 Time of Report: 14:25 Physician Review and Approval Statement: 09/08/17 14:13 Portions of this note were transcribed by the medical claims examiner. I, Dr. Huong George, personally performed the history, physical exam, and medical decision- making; and confirmed the accuracy of the information in the transcribed note.
[2017-09-08] MEDS ORDERED: HYDROmorphONE/DILAUDID 1 MG/ML INJ ONE ×2 (14:26→17:14)
[2017-09-08] MEDS ORDERED: HYDROmorphONE/DILAUDID 1 MG/ML INJ IVP ONE ×2 (14:28→15:01)
[2017-09-08] MEDS ORDERED: HYDROmorphONE/DILAUDID 2 MG/ML INJ IVP ONE (14:29)
[2017-09-08] MEDS ORDERED: NS 1,000 ML IV ONE (14:29)
[2017-09-08] MEDS ORDERED: LR 1,000 ML IV ONE (16:27)
[2017-09-08] MEDS ORDERED: IOTHALAMATE MEG (CONRAY) 50 ML VIAL IV ONE (16:29)
[2017-09-08] MEDS ORDERED: BACITRACIN 50,000 UNITS/10 ML SYR IRR ONE (16:29)
[2017-09-08] MEDS ORDERED: LIDOCAINE 2% JELLY 20 ML (UROJECT) ONE (16:29)
[2017-09-08] MEDS: HYDROmorphONE/DILAUDID 1 MG/ML INJ IVP PRN ×3 (16:38→21:33)
[2017-09-08] MEDS ORDERED: MIDAZOLAM 2 MG/2 ML VIAL ONE (17:08)
[2017-09-08] MEDS ORDERED: fentaNYL 100 MCG/2 ML INJ ONE ×2 (17:09→19:54)
[2017-09-08] MEDS ORDERED: PROPOFOL 200 MG/20 ML VIAL ONE (17:09)
[2017-09-08] MEDS ORDERED: ONDANSETRON 4 MG/2 ML VIAL ONE (17:10)
[2017-09-08] MEDS ORDERED: METOCLOPRAMIDE 10 MG/2 ML VIAL ONE (17:10)
[2017-09-08] MEDS ORDERED: LIDOCAINE 2% JELLY 5 ML TUBE ONE (17:10)
--- NOTE | 2017-09-08 17:22 | PDANEPAE ---
ANE Past Medical History - Pulmonary History Hx Oxygen in Use at Home: No Hx Sleep Apnea: No - Endocrine History Hx Diabetes: No ANE Review of Systems Review of Systems: ANE Patient History - Allergies Allergies/Adverse Reactions: ibuprofen Allergy (Intermediate, Verified 06/03/17 12:23) Hives Penicillins Allergy (Intermediate, Verified 06/03/17 12:23) Swelling/neck,face,throat - Home Medications Home Medications: Meloxicam [Mobic 15 mg] 15 mg PO DAILY PRN 09/08/17 [Last Taken Unknown] - NPO status NPO Since - Liquids (Date): 09/08/17 NPO Since - Liquids (Time): 10:30 NPO Since - Solids (Date): 09/08/17 - Smoking Hx Smoking Status: Never smoked JIM Labs/Vital Signs - Labs Result Diagrams: 09/08/17 14:25 - Vital Signs Blood Pressure: 149/85 Heart Rate: 85 Respiratory Rate: 14 O2 Sat (%): 96 Height: 182.88 cm Weight: 85.275 kg JIM Physical Exam - Airway Mallampati Score: Class 2 - ASA Status ASA Status: II ANE Anesthesia Plan Anesthesia Plan: GA w LMA
[2017-09-08] MEDS ORDERED: CIPROFLOXACIN 400 MG/DEXTROSE 200 ML IV ONE (17:45)
[2017-09-08] MEDS ORDERED: ROCURONIUM 50 MG/5 ML VIAL ONE (18:02)
[2017-09-08] MEDS ORDERED: ACETAMINOPHEN 325 MG TAB PO PRN (18:09)
[2017-09-08] MEDS ORDERED: ONDANSETRON 4 MG/2 ML VIAL IVP PRN (18:09)
[2017-09-08] MEDS ORDERED: PROMETHAZINE HCL 25 MG/ML INJ IVP PRN (18:09)
[2017-09-08] MEDS ORDERED: traMADol 50 MG TAB PO PRN (18:09)
--- NOTE | 2017-09-08 19:10 | GHP ---
[f rep st] HISTORY AND PHYSICAL DATE OF ADMISSION: 09/08/2017 CHIEF COMPLAINT: Flank pain. HISTORY: The patient is a 41-year-old male. This is his 3rd ER visit for kidney stone, and he is no w failing outpatient management. He developed left flank pain radiating to his groin and had a CAT s can on August 30 that showed an 8 mm stone. He had transient hematuria at onset, but none since then. The pain has been coming and going over the last 9 days, but is now escalating again. He was seen yesterday at [facility] and repeat imaging showed he now has developed hydronephrosis, and his creatinine wa s up to 1.7. He was offered, but declined admission at that time. He continues on Flomax. He had a n appointment with Dr. Zazueta for Friday morning. He denies any fever. Pain escalated yet again so now he re-presents to the emergency room and is willing to proceed with hospital admission. PAST MEDICAL HISTORY: Avascular necrosis status post stem cell transplant to the leg following at [facility]. PAST SURGICAL HISTORY: Talus replacement. MEDICATIONS: Please see computer record for full detailed list. ALLERGIES: To penicillin, ibuprofen. SOCIAL HISTORY: No smoking. He drinks alcohol 3-4 days per week, 3-5 drinks per session. He lives alone. Has joint custody of his young daughter. His mother is at bedside with his daughter. REVIEW OF SYSTEMS: Complete review of systems obtained. Review of systems negative regarding consti tutional, HEENT, GI, pulmonary, breast, , hematology, muscular, endocrine, psych except for positiv es and negatives as in HPI. FAMILY HISTORY: Reviewed and noncontributory to presenting complaint. PHYSICAL EXAMINATION: GENERAL: Well-developed, well-nourished male, in no acute distress. VITAL SI GNS: Temperature 36.7, pulse 89, blood pressure 133/96, satting 95% on room air. HEENT: Normal con junctivae. Pupils were equal, round, and react to light. ENT: Normal ears, nose. Hearing intact. Normal lips and teeth. Oropharynx moist. NECK: Trachea midline. No thyromegaly. CHEST: Normal respiratory effort. LUNGS: Clear to auscultation bilaterally. CARDIOVASCULAR: Regular rate and rh ythm. No murmur. No extremity edema. ABDOMEN: Soft, nontender. No hepatosplenomegaly. SKIN: War m, dry, intact. No rash. MUSCULOSKELETAL: No cyanosis or clubbing. Strength 5/5 upper and lower e xtremities. NEUROLOGIC: Cranial nerves intact. Normal sensation to light touch. PSYCH: Alert and oriented x3. Normal affect. Normal judgment and insight. Normal memory. LABORATORY DATA: Sodium 138, potassium 4.1, chloride 100, bicarb 29, BUN 11, creatinine 1.5, glucose 93. Urinalysis negative. ASSESSMENT/PLAN: 1. 8 mm kidney stone. He has failed conservative treatment. He is now being admitted under observa tion. Urology will see him in consultation. They are considering surgical extraction of the stone t onight. Will keep him nothing by mouth. Intravenous Dilaudid will be continued for pain control. Wi ll continue Flomax. 2. Acute renal failure. Will hydrate with intravenous fluids and hold nonsteroidal anti-inflammator y drugs. Recheck creatinine in the morning. 3. Avascular necrosis of the lower extremity. Following at [place] [facility]. He reports he may need further stem-cell treatments in the near future. CODE STATUS: Full. ADMISSION STATUS: Will admit to observation. Anticipate discharge home tomorrow if stone is success fully extracted by Urology. DVT PROPHYLAXIS: He is low risk. /[id number]/MODL
[2017-09-08] MEDS ORDERED: HYDROmorphONE/DILAUDID 1 MG/ML INJ IVP PRN (19:35)
[2017-09-08] MEDS ORDERED: NALOXONE HCL 0.4 MG/ML INJ IVP PRN (19:35)
[2017-09-08] MEDS ORDERED: LR 500 ML IV PRN (19:35)
[2017-09-08] MEDS ORDERED: fentaNYL 100 MCG/2 ML INJ IVP PRN (19:35)
--- NOTE | 2017-09-08 19:37 | POSTANESTH ---
Post Anesthetic Evaluation Cardiovascular Status: Normal, Stable Respiratory Status: Normal, Stable Level of Consciousness/Mental Status: Can Participate in Eval Pain Control: Adequate, Prn Tx Ordered Nausea/Vomiting Control: Adequate, Prn Tx Ordered Complications Possibly Related to Anesthesia: None Noted
--- NOTE | 2017-09-08 21:10 | GOP ---
[f rep st] OPERATIVE REPORT DATE OF OPERATION: 09/08/2017 SURGEON: Marquise Albright MD ANESTHESIA: General. PREOPERATIVE DIAGNOSIS: Left distal ureteral stone. POSTOPERATIVE DIAGNOSIS: Left distal ureteral stone. PROCEDURE PERFORMED: Left ureteroscopic laser lithotripsy with stent placement. FINDINGS: SPECIMENS: Fragment of left distal ureteral stone. ESTIMATED BLOOD LOSS: Minimal. DESCRIPTION OF PROCEDURE: After informed consent was obtained, patient was prepped and draped in nor mal sterile fashion. Patient was placed in the lithotomy position. A 22-Russian rigid cystoscope she ath was introduced. Normal urethra, normal prostate, normal bladder. The left ureteral orifice was intubated with a Glidewire. Over the Glidewire a 5-Russian open catheter was placed. Retrograde pyel ogram was performed. He was noted to have moderate hydronephrosis. The 5-Russian open catheter was r emoved and the wire was left in place. Next, rigid ureteroscopy was performed. Left ureteral orific e could not be intubated. Next, the ureteral stent was visible on the fluoroscopy. A balloon dilato r was placed up to but not next to the ureteral stone, was dilated up to 10 atmospheres for 3 minutes . The balloon was then removed. Next, rigid ureteroscopy was again performed. The stone was identi fied, was fragmented using 200 micron Holmium laser fiber. After good fragmentation was noted, fragm ent was removed using a basket. It was sent to the lab. All the fragments were very small. The abo ve-mentioned stent was placed with a good curl in the kidney and in the bladder. The wire was remove d. He tolerated the procedure very well. I will follow up next week to have the stent removed in e office. He already has the pain medications. He already has Flomax. Patient does not need any an tibiotics. He has my contact information. Please call if there are any issues. If not, I plan to s ee him in the office next week. COMPLICATIONS: None. DRAINS: 28 cm 6-Russian double J stent. /[id number]/MODL
[2017-09-08] MEDS: NS 1,000 ML IV SCH (21:32)
--- NOTE | 2017-09-08 23:01 | GCON ---
[f rep st] CONSULTATION DATE OF CONSULTATION: 09/08/2017 REASON FOR CONSULTATION: Left ureteral stone and acute renal failure. HISTORY OF PRESENT ILLNESS: Patient is a -zofl-hxn gentleman admitted secondary to a creat inine of 1.7 and an 8 mm distal ureteral stone. He also has some left renal stones on CT scan. He khan s had 3 ER visits. His pain, he states, has been poorly controlled with Percocet, antiinflammatories . He is currently on Flomax. He is otherwise a healthy gentleman. PAST MEDICAL HISTORY: Noted for avascular necrosis, status post stem cell transplant at [facility]. PAST SURGICAL HISTORY: Noted for talus replacement. MEDICATIONS: See list. ALLERGIES: Penicillin and ibuprofen. SOCIAL HISTORY: Nonsmoker. He drinks 3-4 drinks per week. He lives alone. There is no family memb er to talk with. REVIEW OF SYSTEMS: 10-point review of systems was performed. Denies any symptoms of infection. No fevers, chills, chest pain, shortness of breath. No dyspnea on exertion. No recent trauma. Denies any significant bowel issues. No prior urologic history. No prior stone. No prior voiding problems . FAMILY HISTORY: Reviewed and noncontributory. PHYSICAL EXAMINATION: GENERAL: No apparent distress. VITAL SIGNS: Temperature was 36.7, pulse 86, blood pressure 133/96. HEENT: Normocephalic. Pupils equal, round, reactive to light. Normal ears and throat. NECK: Supple. Trachea midline. CHEST: Clear bilaterally. Lungs were clear. CARDIO VASCULAR: Regular rate and rhythm. SKIN: A little bit dry and intact. ABDOMEN: Soft, nontender, nondistended. No specific flank tenderness. GENITALIA: Normal male genitalia, circumcised. Normal testicles bilaterally. LABORATORY DATA: Creatinine is 1.7. ASSESSMENT AND PLAN: Patient with a large obstructing distal ureteral stone, who has already come to the emergency room 3 times. We had a long discussion of treatment options. He no longer wants a tr ial of passage. Due to acute renal failure and ongoing poor pain control, we discussed treatment opt ions. Due to it being a distal stone, recommend a uroscopic laser lithotripsy with stent placement. We discussed risks of damage to the ureter, risk of scar tissue, risk of damage to the kidney, risk of pain from the stent, risk of possibly being a staged procedure, and also discussed and reviewed ma y be difficult to access the renal stones. After discussing risks and benefits, he wishes to proceed with left uroscopic laser lithotripsy with stent placement. He will follow up in the office next we ek to have this stent removed if everything goes well, and he is provided my contact information. /[id number]/MODL
[2017-09-08] MEDS: oxyCODONE IR 5 MG TAB PO PRN (23:17)
[2017-09-08] MEDS: PHENAZOPYRIDINE HCL 100 MG TAB PO PRN (23:56)
[2017-09-09 05:03] LABS: PLATELET COUNT 218 10^3/uL (150-400)
[2017-09-09] MEDS: PHENAZOPYRIDINE HCL 100 MG TAB PO PRN (06:16)
[2017-09-09] MEDS: NS 1,000 ML IV SCH (06:16)
[2017-09-09] MEDS: oxyCODONE IR 5 MG TAB PO PRN ×2 (06:17→10:44)
[2017-09-09] MEDS ORDERED: TAMSULOSIN HCL 0.4 MG CAP PO SCH (09:00)
--- NOTE | 2017-09-09 11:42 | ASMTLACE ---
LACE Length of stay for Answers: Less than 1 day current admission Acuity / Level of Answers: No Care: Did the patient have an inpatient admission? Comorbidities - select Answers: Other Notes: ureterothiliathis all that apply # of Emergency department Answers: 1-2 visits in the last 6 months Score: 2 Date Signed: 09/09/2017 11:41 AM Electronically Signed By:Rocío Juares RN
--- NOTE | 2017-09-09 11:44 | ASMTCMCOM ---
CM Note CM Note Notes: Chart reviewed. 41 year old male with know kidney stone admitted via ED for increasing pain and ARF secondary to stone. T or for retrieval of stone. No needs identified at present time. CM available should needs arise. Plan: Home independent. Date Signed: 09/09/2017 11:44 AM Electronically Signed By:Rocío Juares RN
[2017-09-09 12:22] VITALS: BP 118/70
--- NOTE | 2017-09-09 15:10 | GDS ---
[f rep st] DISCHARGE SUMMARY DISCHARGE DIAGNOSES: 1. Left distal ureteral stone, status post ureteroscopic laser lithotripsy with stent placement. 2. Acute renal failure due to above. 3. History of avascular necrosis of the lower extremity. CONSULTANTS: Dr. Marquise Albright, [facility]. HOSPITAL COURSE: Left ureteral stone: The patient went to the operating room on 09/09/2017, where rocio cyr underwent laser lithotripsy and stent placement for obstructing kidney stone. The patient tolerate d the procedure well. On day of discharge, he is voiding and his pain is controlled. Prior to disch rosario, it was explained to him that he has a ureteral stent in place that needs to be removed in the n ext week. The patient verbalizes understanding to these instructions and plans to follow up with his urologist, Dr. Albright. PHYSICAL EXAMINATION: VITAL SIGNS: On day of discharge, blood pressure 118/70, pulse of 67, respira tory rate 16, O2 saturation 92% on room air. Temperature afebrile. GENERAL: In no acute distress. ABDOMEN: Soft, nontender, nondistended. No guarding or rebound tenderness. Normoactive bowel soun ds. LABORATORY DATA: Initial creatinine was 1.5 and decreased to 1.1 on day of discharge. PROCEDURES: Left ureteroscopic laser lithotripsy with stent placement done by Dr. Marquise Albright on . DISCHARGE MEDICATIONS: Please refer to discharge medication reconciliation in [facility] for details. DISCHARGE INSTRUCTIONS: The patient will be discharged home with followup with Dr. Albright. /[id number]/MODL
== END 2017-09-09 14:09 | disposition home or self-care (01) ==
LOC: F1N 20:33
PROVIDERS: ADMIT Internal Medicine; ATTEND Family Medicine
PROC: 0TF78ZZ Fragmentation in Left Ureter, Via Natural or Artificial Opening Endoscopic (ICD-10-PCS; principal; 2017-09-08 17:00)
PROC: 0T778DZ Dilation of Left Ureter with Intraluminal Device, Via Natural or Artificial Opening Endoscopic (ICD-10-PCS; principal; 2017-09-08 17:00)
PROC: 0TC78ZZ Extirpation of Matter from Left Ureter, Via Natural or Artificial Opening Endoscopic (ICD-10-PCS; principal; 2017-09-08 17:00)
PROC: BT17YZZ Fluoroscopy of Left Ureter using Other Contrast (ICD-10-PCS; principal; 2017-09-08 17:00)
DX: N13.2 Hydronephrosis with renal and ureteral calculous obstruction (principal); N17.9 Acute kidney failure, unspecified; E86.9 Volume depletion, unspecified; M87.059 Idiopathic aseptic necrosis of unspecified femur; Z87.442 Personal history of urinary calculi; Z94.84 Stem cells transplant status; Z94.6 Bone transplant status; Z88.0 Allergy status to penicillin
CPT/HCPCS: 52356; 76001; C1726; C1758; C1769; C1894; G0378; 82365-90; 96374; C2625; J0744; J1170; J2250; J2405; J2704; J2765; J3010; Q9961

== ENCOUNTER 2017-09-10 14:05 | Emergency (ER) | payer OTHER ==
[2017-09-10] MEDS ORDERED: NS 1,000 ML IV ONE (15:20)
[2017-09-10] MEDS ORDERED: HYDROmorphONE/DILAUDID 2 MG/ML INJ IVP ONE ×2 (15:20→15:46)
[2017-09-10] MEDS ORDERED: HYDROmorphONE/DILAUDID 1 MG/ML INJ ONE (15:43)
[2017-09-10] MEDS ORDERED: KETOROLAC 30 MG/1 ML SDV ONE (15:53)
[2017-09-10] MEDS ORDERED: LET GEL TOPICAL 1 EA SYR TP ONE ×3 (15:53→15:55)
[2017-09-10] MEDS ORDERED: KETOROLAC 30 MG/1 ML SDV IVP ONE ×2 (15:55)
[2017-09-10 16:19] LABS: PLATELET COUNT 277 10^3/uL (150-400)
[2017-09-10 18:46] VITALS: BP 146/94
--- NOTE | 2017-09-10 19:02 | EDPHY ---
H & P Stated Complaint: left knee and leg swelling/pain since last night, recent hospitalization Time Seen by Provider: 09/10/17 15:09 HPI/ROS: 41 yo M with recent stent placement for ureteral stone 2 days ago, at that time with RON, improved, has been home from hospital for one doing minimal activity and woke up today with left knee swelling and pain. No fever or chills. Upon reviewing patients chart there is a likely hx of prior gout, though pt states he has not been specifically treated for gout and that his uric acid has never been elevated. He has a more remote hx of "osteonecrosis" and ?bone cancer, with multiple surgeries to bilateral ankles. Review of systems as per HPI General no fever no chills no weakness HEENT no eye pain no eye discharge. No eye redness, no sore throat Respiratory no cough, no shortness of breath Cardiac no chest pain, no peripheral edema GI no abdominal pain, no diarrhea, no constipation, no nausea, no vomiting no flank pain, no hematuria, no dysuria Musculoskeletal no myalgias, pos joint pain Heme no easy bruising, no easy bleeding Endo no polyuria, no polydipsia Skin no rashes, no pruritus Neuro no syncope, no dizziness, no headaches Psych is no suicidal ideation, no homicidal ideation Source: Patient, Family - Personal History Current Tetanus Diphtheria and Acellular Pertussis (TDAP): Yes - Medical/Surgical History Hx Asthma: No Hx Chronic Respiratory Disease: No Hx Diabetes: No Hx Cardiac Disease: No Hx Renal Disease: No Hx Cirrhosis: No Hx Alcoholism: No Hx HIV/AIDS: No Hx Splenectomy or Spleen Trauma: No Other PMH: 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 Kidney stone. - Family History Significant Family History: No pertinent family hx - Social History Smoking Status: Never smoked Alcohol Use: None Drug Use: None - Physical Exam Exam: 41-year-old male alert and oriented, nontoxic appearance, afebrile, severe distress secondary to left knee pain Atraumatic normocephalic Neck supple Lungs clear to auscultation Heart regular rate and rhythm Abdomen nondistended bowel sounds present soft nontender Extremities No cyanosis clubbing Or edema except [id number] effusion primarily suprapatellar, with decreased range of motion , no erythema no increased warmth Diffusely tender Mild calf tenderness however no calf swelling Distal pulses intact Constitutional: Initial Vital Signs Temperature (C) 36.6 C 09/10/17 14:12 Heart Rate 95 09/10/17 14:12 Respiratory Rate 18 09/10/17 14:12 Blood Pressure 153/81 H 09/10/17 14:12 O2 Sat (%) 95 09/10/17 14:12 O2 Delivery Mode Room Air Allergies/Adverse Reactions: ibuprofen Allergy (Intermediate, Verified 09/10/17 14:12) Hives Penicillins Allergy (Intermediate, Verified 09/10/17 14:12) Swelling/neck,face,throat Home Medications: Medication Instructions Recorded Tamsulosin HCl [Flomax 0.4 MG (*)] 0.4 mg PO DAILY #10 cap 08/30/17 oxyCODONE HCL/ACETAMINOPHEN 1 each PO Q6H PRN #15 tablet 08/30/17 [Percocet 5-325 mg Tablet] Meloxicam [Mobic 15 mg] 15 mg PO DAILY PRN 09/08/17 methylPREDNISolone [Medrol Dose 1 each PO AD #1 ea 09/10/17 Nicholas] oxyCODONE/APAP 5/325 [Percocet 1 - 2 tab PO Q8H PRN #16 tab 09/10/17 5/325 (*)] Medical Decision Making - Diagnostics Imaging Results: Imaging Impressions Extremity Venous Study 09/10/17 14:18 Impression: 1. No deep venous thrombosis left leg. 2. Left Smith's cyst. 3. Large left joint effusion. Findings and recommendations given to Dr. Arora at 15:47 hour, 09/10/2017. Final report concurs with initial preliminary interpretation. Knee X-Ray 09/10/17 15:31 Impression: 1. Moderate effusion suprapatellar bursa. 2. No underlying osseous abnormality seen left knee. Procedures: Arthrocentesis Left knee Area cleansed with chlorhexidine preps Lidocaine 1% local 18 gauge needle introduced at medial aspect of upper patella , 60 cc a turbid yellow joint fluid removed and sent to laboratory for analysis. Patient tolerated procedure well, had market improvement in movement of knee after arthrocentesis. ED Course/Re-evaluation: Patient seen and evaluated for sudden onset large knee effusion and knee pain. Ultrasound negative for DVT Positive for large joint effusion positive for Smith cyst X-ray Positive joint effusion otherwise negative Labs were sent CBC with WBC 10 ESR 23 CR P 84 Lactate negative CMP within normal limits Synovial fluid G stain large PMNs, no bacteria, no organisms WBC 14026, no RBCs Positive monosodium urate crystals Patient was given IV fluids, Dilaudid a total of 2 mg IV push, Toradol 30 mg IV push for pain control Blood cultures, urine culture, synovial fluid culture pending An arthrocentesis was performed and synovial fluid sent for cell count, Gram stain and culture, patient had marked relief after effusion was drained. Impression Left knee effusion, synovial fluid consistent with gout Plan Patient given Decadron 4 mg IV prior to discharge, discharged home on Medrol Dosepak, short-term Percocet Advised to follow up with his primary care physician for chronic management of gout Differential Diagnosis: Differential diagnosis considered but not limited to: Osteoarthritis, septic arthritis, rheumatoid arthritis, gout - Data Points Laboratory Results: Laboratory Results 09/10/17 15:35 09/10/17 09/10/17 09/10/17 17:35 16:50 15:43 WBC RBC Hgb Hct MCV MCH MCHC RDW Plt Count MPV Neut % (Auto) Lymph % (Auto) [place] % (Auto) Eos % (Auto) Baso % (Auto) Nucleat RBC Rel Count Absolute Neuts (auto) Absolute Lymphs (auto) Absolute Monos (auto) Absolute Eos (auto) Absolute Basos (auto) Absolute Nucleated RBC Immature Gran % Immature Gran # ESR POC Sodium POC Potassium POC Chloride POC Total CO2 POC BUN POC Creatinine POC Glucose POC Lactic Acid [place] 1.0 mmol/L mmol/L (0.7-2.1) POC Calcium POC Total Bilirubin POC AST POC ALT POC Alk Phosphatase C-Reactive Protein POC Total Protein POC Albumin Urine Color YELLOW Urine Appearance HAZY Urine pH 8.0 H (5.0-7.5) Ur Specific [place] 1.009 (1.002-1.030) Urine Protein 1+ H (NEGATIVE) Urine Ketones NEGATIVE (NEGATIVE) Urine Blood 3+ H (NEGATIVE) Urine Nitrate NEGATIVE (NEGATIVE) Urine Bilirubin NEGATIVE (NEGATIVE) Urine Urobilinogen NEGATIVE EU EU (0.2-1.0) Ur Leukocyte Esterase TRACE H (NEGATIVE) Urine RBC 50-182 /hpf H /hpf (0-3) Urine WBC 5-10 /hpf H /hpf (0-3) Ur Epithelial Cells NONE SEEN /lpf /lpf (NONE-1+) Urine Glucose NEGATIVE (NEGATIVE) Fl Pathologist Review Pending Synovial Source SYNOVIAL Synovial Color YELLOW H (CLS/PALE YL) Synovial Appearance CLOUDY H (CLEAR) Synovial WBC 36201 /mm3 H /mm3 (0-150) Synovial RBC 0 /mm3 /mm3 (0-0) Synovial Neutrophils 95 % H % (0-25) Synovial Lymphocytes 1 % % Synov Monos/Macrophage 4 % % Synovial Crystals Pending 09/10/17 09/10/17 09/10/17 15:43 15:35 15:35 WBC 10.15 10^3/uL H 10^3/uL (3.80-9.50) RBC 5.14 10^6/uL 10^6/uL (4.40-6.38) Hgb 15.3 g/dL g/dL (13.7-17.5) Hct 45.1 % % (40.0-51.0) MCV 87.7 fL fL (81.5-99.8) MCH 29.8 pg pg (27.9-34.1) MCHC 33.9 g/dL g/dL (32.4-36.7) RDW 13.0 % % (11.5-15.2) Plt Count 277 10^3/uL 10^3/uL (150-400) MPV 9.8 fL fL (8.7-11.7) Neut % (Auto) 78.9 % H % (39.3-74.2) Lymph % (Auto) 10.3 % L % (15.0-45.0) [place] % (Auto) 9.1 % % (4.5-13.0) Eos % (Auto) 1.1 % % (0.6-7.6) Baso % (Auto) 0.2 % L % (0.3-1.7) Nucleat RBC Rel Count 0.0 % % (0.0-0.2) Absolute Neuts (auto) 8.01 10^3/uL H 10^3/uL (1.70-6.50) Absolute Lymphs (auto) 1.05 10^3/uL 10^3/uL (1.00-3.00) Absolute Monos (auto) 0.92 10^3/uL H 10^3/uL (0.30-0.80) Absolute Eos (auto) 0.11 10^3/uL 10^3/uL (0.03-0.40) Absolute Basos (auto) 0.02 10^3/uL 10^3/uL (0.02-0.10) Absolute Nucleated RBC 0.00 10^3/uL 10^3/uL (0-0.01) Immature Gran % 0.4 % % (0.0-1.1) Immature Gran # 0.04 10^3/uL 10^3/uL (0.00-0.10) ESR 23 MM/HR H MM/HR (0-15) POC Sodium 136 mEq/L mEq/L (135-145) POC Potassium 3.8 mEq/L mEq/L (3.3-5.0) POC Chloride 100.0 mEq/L mEq/L (97-110) POC Total CO2 26 mEq/L mEq/L (22-31) POC BUN 7 mg/dL mg/dL (7-23) POC Creatinine 1.2 mg/dL mg/dL (0.7-1.3) POC Glucose 99 mg/dL mg/dL (70-100) POC Lactic Acid [place] POC Calcium 9.2 mg/dL mg/dL (8.5-10.4) POC Total Bilirubin 0.9 mg/dL mg/dL (0.1-1.4) POC AST 18 IU/L IU/L (17-59) POC ALT 12 IU/L L IU/L (21-72) POC Alk Phosphatase 62 IU/L IU/L (38-126) C-Reactive Protein 84.1 mg/L H mg/L (<10.0) POC Total Protein 7.5 g/dL g/dL (6.3-8.2) POC Albumin 3.5 g/dL g/dL (3.5-5.0) Urine Color Urine Appearance Urine pH Ur Specific [place] Urine Protein Urine Ketones Urine Blood Urine Nitrate Urine Bilirubin Urine Urobilinogen Ur Leukocyte Esterase Urine RBC Urine WBC Ur Epithelial Cells Urine Glucose Fl Pathologist Review Synovial Source Synovial Color Synovial Appearance Synovial WBC Synovial RBC Synovial Neutrophils Synovial Lymphocytes Synov Monos/Macrophage Synovial Crystals Microbiology Results: MICROBIOLOGY 09/10/17 16:50 Synovial Fluid - Aspirate Gram Stain - Final Medications Given: Discontinued Medications Dexamethasone (Decadron Injection) 4 mg IVP EDNOW ONE Stop: 09/10/17 19:12 Last Admin: 09/10/17 19:15 Dose: 4 mg Hydromorphone HCl (Dilaudid) 1 mg IVP EDNOW ONE Stop: 09/10/17 15:21 Last Admin: 09/10/17 15:48 Dose: 1 mg Hydromorphone HCl (Dilaudid) 1 mg IVP EDNOW ONE Stop: 09/10/17 15:47 Last Admin: 09/10/17 16:16 Dose: 1 mg Sodium Chloride (Ns) 1,000 mls @ 0 mls/hr IV ONCE ONE PRN Reason: Wide Open Stop: 09/10/17 15:21 Last Admin: 09/10/17 15:45 Dose: 1,000 mls Ketorolac Tromethamine (Toradol) 30 mg IVP EDNOW ONE Stop: 09/10/17 15:56 Last Admin: 09/10/17 15:57 Dose: 30 mg Ketorolac Tromethamine (Toradol) 30 mg IVP EDNOW ONE Stop: 09/10/17 15:56 Last Admin: 09/10/17 16:24 Dose: Not Given Oxycodone/Acetaminophen (Percocet 5/325mg Prepack#4) 1 btl TAKEHOME EDNOW ONE Stop: 09/10/17 19:18 Last Admin: 09/10/17 19:29 Dose: 1 btl Tetracaine/Epinephrine/Lidocaine (Let Gel Topical) 1 ea TP EDNOW ONE Stop: 09/10/17 15:56 Last Admin: 09/10/17 15:56 Dose: 1 ea Tetracaine/Epinephrine/Lidocaine (Let Gel Topical) 1 ea TP EDNOW ONE Stop: 09/10/17 15:56 Last Admin: 09/10/17 16:24 Dose: Not Given Point of Care Test Results: Chemistry 09/10/17 15:43 POC Sodium 136 mEq/L mEq/L (135-145) POC Potassium 3.8 mEq/L mEq/L (3.3-5.0) POC Chloride 100.0 mEq/L mEq/L (97-110) POC Total CO2 26 mEq/L mEq/L (22-31) POC BUN 7 mg/dL mg/dL (7-23) POC Creatinine 1.2 mg/dL mg/dL (0.7-1.3) POC Glucose 99 mg/dL mg/dL (70-100) POC Calcium 9.2 mg/dL mg/dL (8.5-10.4) POC Total Bilirubin 0.9 mg/dL mg/dL (0.1-1.4) POC AST 18 IU/L IU/L (17-59) POC ALT 12 IU/L L IU/L (21-72) POC Alk Phosphatase 62 IU/L IU/L (38-126) POC Total Protein 7.5 g/dL g/dL (6.3-8.2) POC Albumin 3.5 g/dL g/dL (3.5-5.0) Blood Gas/Lactic Acid-Venous 09/10/17 15:43 POC Lactic Acid Sabas 1.0 mmol/L mmol/L (0.7-2.1) Departure - Departure Disposition: Home, Routine, Self-Care Clinical Impression: Gout, Effusion, left knee Condition: Good Instructions: Oxycodone/Acetaminophen (By mouth), Low Purine Diet (ED), Gout ( ED) Referrals: Mara Ortiz PA [Primary Care Provider] - As per Instructions Prescriptions: methylPREDNISolone [Medrol Dose Nicholas] 1 each PO AD #1 ea oxyCODONE/APAP 5/325 [Percocet 5/325 (*)] 1 - 2 tab PO Q8H PRN #16 tab PRN Reason: Pain, Severe
[2017-09-10] MEDS ORDERED: DEXAMETHASONE 4 MG/ML VIAL IVP ONE (19:11)
[2017-09-10] MEDS ORDERED: OXYCODONE/APAP 5/325MG PREPACK#4 BTL TAKEHOME ONE (19:17)
== END 2017-09-10 19:33 | disposition home or self-care (01) ==
LOC: CED 14:05
PROC: 0S9D3ZZ Drainage of Left Knee Joint, Percutaneous Approach (ICD-10-PCS; principal; 2017-09-10)
DX: M25.462 Effusion, left knee (principal); M10.9 Gout, unspecified
CPT/HCPCS: 73562-PO; 80053-PO; 83605-PO; 93971-PO; 96374; J1100; J1170; J1885

== ENCOUNTER 2018-01-19 10:57 | Emergency (ER) | payer OTHER ==
[2018-01-19 11:08] VITALS: BP 128/69
[2018-01-19] MEDS ORDERED: DEXAMETHASONE 4 MG TAB PO ONE (11:21)
[2018-01-19] MEDS ORDERED: traMADol 50 MG TAB PO ONE (11:21)
[2018-01-19] MEDS ORDERED: ACETAMINOPHEN 500 MG TAB PO ONE (11:22)
--- NOTE | 2018-01-19 11:34 | EDPHY ---
H & P Time Seen by Provider: 01/19/18 11:02 HPI/ROS: This patient complains of left knee pain 9/10 intensity achy in nature with associated tenderness that started yesterday. The patient upon review of prior visits with here in August with a knee effusion at that time and similar pain positive for gout crystals on aspirate. He was unaware of that results when I spoke to him but reveals that he was advised to avoid animal proteins by his primary care physician is also concerned the patient likely had gout. He has been drinking alcohol pretty regularly lately and recently started eating hamburgers. He is ambulating with crutches due to the pain and has not taken any medications for the ailment prior to arrival. Pain worsens with flexion and extension of the knee without other exacerbating factors. No recent injuries. His mother drove him here by private vehicle. ROS: Constitutional: No fevers. No fatigue. HEENT: No complaints new line musculoskeletal: No other joint pains or complaints Neuro: No numbness or tingling the affected extremity Pulmonary: No pleuritic pain or shortness of breath Cardiovascular: No calf swelling, lightheadedness or other cardiac complaints Integumentary: No associated skin redness 7 point review of symptoms is performed and otherwise negative with exception of pertinent positives and negatives listed in HPI and ROS Smoking Status: Never smoked Physical Exam: Physical Exam Vital signs are normal. General: No acute distress Eyes: Pupils equal and react to light. Extraocular motions are intact. Lungs: No respiratory distress. Cardiac: Brisk capillary refill is intact throughout. Pulses are 2+ and symmetric in the affected extremity. Skin: No rash or pallor. No track heart Extremities: Atraumatic normal except for left knee Left knee: Patient has slight warmth to touch to the affected knee but no significant effusion at this point. Healed the knee in partial flexion is the most comfortable position but is able to extend and flex the knee. There is no crepitance. No laxity Neuro: Alert and oriented x3 with no sensorimotor deficits. Initial differential diagnosis: Gouty flare, doubt septic joint, knee strain Constitutional: Initial Vital Signs Temperature (C) 36.9 C 01/19/18 11:04 Heart Rate 87 01/19/18 11:04 Respiratory Rate 18 01/19/18 11:04 Blood Pressure 128/69 H 01/19/18 11:04 O2 Sat (%) 93 01/19/18 11:04 O2 Delivery Mode Room Air Allergies/Adverse Reactions: ibuprofen Allergy (Intermediate, Verified 01/19/18 11:03) Hives Penicillins Allergy (Intermediate, Verified 01/19/18 11:03) Swelling/neck,face,throat Home Medications: Medication Instructions Recorded Potassium Citrate 01/19/18 methylPREDNISolone [Medrol Dose 4 mg PO AD #1 ea 01/19/18 Nicholas] traMADol [Ultram 50 mg (*)] 50 - 100 mg PO Q4 PRN #20 tab 01/19/18 MDM/Departure - MDM Medications Given: Discontinued Medications Acetaminophen (Tylenol) 1,000 mg PO EDNOW ONE Stop: 01/19/18 11:23 Last Admin: 01/19/18 11:29 Dose: 1,000 mg Dexamethasone (Decadron) 10 mg PO EDNOW ONE Stop: 01/19/18 11:22 Last Admin: 01/19/18 11:28 Dose: 10 mg Tramadol HCl (Ultram) 100 mg PO EDNOW ONE Stop: 01/19/18 11:22 Last Admin: 01/19/18 11:28 Dose: 100 mg ED Course/Re-evaluation: Discussion: With recent animal protein intake and relatively heavy alcohol consumption, prior history of gout with similar findings, this patient is presentation is most consistent with gout. Patient declines IV, labs and imaging workup. He understands the potential to miss other potential diagnoses including septic joint. Decadron 10 mg p. O. Tylenol and tramadol p.o. Will plan to treat this patient with a Solu-Medrol Dosepak, Tylenol and tramadol , cut back on protein alcohol intake and follow up with primary care physician. He understands need to return emergency department should he develop worsening symptoms despite the treatment plan - Depart Disposition: Home, Routine, Self-Care Clinical Impression: Gout attack Qualifiers: Gout site: knee Gout etiology: other secondary cause Laterality: left Qualified Code(s): M10.462 - Other secondary gout, left knee Condition: Good Instructions: Low Purine Diet (ED), Gout (ED) Additional Instructions: Diagnosis: Gout attack left knee Plan: Stop eating animal protein try to cut back and protein general until this episode resolved Cut back on alcohol intake particularly of beers and wine. Drink plenty fluids Medrol Dosepak as prescribed Tylenol and tramadol in addition for pain control as needed. No driving, alcohol work on tramadol Follow up with primary care physician for a recheck. Return for any significant worsening emergency department Prescriptions: methylPREDNISolone [Medrol Dose Nicholas] 4 mg PO AD #1 ea traMADol [Ultram 50 mg (*)] 50 - 100 mg PO Q4 PRN #20 tab PRN Reason: breakthrough pain Referrals: Mara Ortiz PA [Primary Care Provider] - As per Instructions Ewa Cartwright MD [Medical Doctor] - As per Instructions
== END 2018-01-19 11:39 | disposition home or self-care (01) ==
LOC: CED 10:57
DX: M25.562 Pain in left knee (principal); M10.462 Other secondary gout, left knee

== ENCOUNTER → 2018-02-23 | Outpatient (CLI) | payer OTHER | LOC: CIMAGING 08:30 | PROVIDERS: ATTEND Urology | DX: N20.0 Calculus of kidney (principal); K59.00 Constipation, unspecified | CPT/HCPCS: 74018-PO ==

== ENCOUNTER 2018-03-04 12:10 | Emergency (ER) | payer OTHER ==
[2018-03-04] MEDS ORDERED: HYDROCODONE/APAP 5/325 TAB PO ONE (12:32)
--- NOTE | 2018-03-04 12:49 | EDPHY ---
H & P Time Seen by Provider: 03/04/18 12:38 HPI/ROS: HPI Right foot pain. 42-year-old male by private vehicle with his mother. This patient has been seen in our emergency department multiple times with knee, ankle and lower extremity pain apparently related to either gout or as the patient puts it osteonecrosis. He presents the emergency department today with complaint of atraumatic pain in his right foot medial arch and just posterior and inferior to the medial malleolus of the right ankle. He denies any history of trauma. He has not had a fever. He states that he has been diagnosed with gout in the past but tells me that his urologist has told him that he does not have gout. He states that he has an appointment to see his urologist next week for a procedure and has been told he cannot take NSAIDs. ROS: Constitutional: No fever, no chills. No weakness. Respiratory: No cough. No shortness of breath. Cardiac: No chest pain, no palpitations. Musculoskeletal: No back pain. No neck pain. As above. Denies other extremity pain. Skin: No rashes. Neurological: No focal weakness or altered sensation. Past medical history: Possible gout, he states he has had bone grafts in his left leg and also reports he has had a stem cell transplant. He has a history of kidney stones. He also has a history of alcohol abuse. Social history: Nonsmoker. Here with his mother. As above. Physical Exam: General Appearance: Alert, no distress. This patient is responding to questions appropriately and in full sentences. This patient appears well- hydrated and well-nourished. Eyes: Pupils equal and round no pallor or injection. No lid edema, erythema or injection. Right foot and ankle exam: There is no significant erythema. No significant edema or swelling. No significant asymmetry when compared to the left lower extremity. He does have tenderness on palpation of the medial mid arch and plantar fascia of the right foot. He also has tenderness on palpation posterior and slightly inferior to the medial malleolus. Again no associated edema, erythema, ecchymosis noted. The bony aspects of the foot are otherwise nontender on palpation. He does not have tenderness on direct palpation of the medial malleolus or the lateral malleolus. The Achilles tendon function is intact. The right foot is neurovascularly intact. Neurological: Motor sensory function is grossly intact. Cranial nerves are normal. Antalgic gait favoring the right foot. Skin: Warm and dry, no rashes. Musculoskeletal: Neck is supple and nontender. Extremities are symmetrical except noted. All joints range without pain or impingement except noted. Psychiatric: No agitation. No depression. Database: EKG: Imaging: Right foot and ankle series: Negative for fracture, subluxation, dislocation. Moderate right ankle osteoarthritis. Interpreted by me. Procedures: Emergency department course: Triage vital signs reviewed. He is afebrile. Vital signs are otherwise normal. His presentation is not consistent with gout, pseudogout or traumatic injury. Of consideration is plantar fasciitis. Results of his x-rays were discussed with him. I agreed to write him a limited prescription for Vicodin for pain control as he reports he cannot take NSAIDs until after next week. I will have him follow up with podiatry. He has a orthopedic walking boot as well as crutches with him, I discussed weight-bearing as tolerated to his right foot. I have recommended arch support insoles as well. He feels comfortable being discharged. Follow-up and return to emergency department precautions reviewed with him. All of his questions were answered. He was discharged from the emergency department in good condition with his mother who is driving. Differential Diagnosis: The differential diagnosis on this patient includes but is not limited to plantar fasciitis. Gout, pseudogout, traumatic injury unlikely. This represents a partial list of diagnoses considered. These considerations are based on history, physical exam, past history, reassessment and diagnostic testing. Smoking Status: Never smoked Constitutional: Initial Vital Signs Temperature (C) 36.6 C 03/04/18 12:17 Heart Rate 82 03/04/18 12:17 Respiratory Rate 16 03/04/18 12:17 Blood Pressure 126/75 H 03/04/18 12:17 O2 Sat (%) 95 03/04/18 12:17 O2 Delivery Mode Room Air Allergies/Adverse Reactions: ibuprofen Allergy (Intermediate, Verified 03/04/18 12:16) Hives Penicillins Allergy (Intermediate, Verified 03/04/18 12:16) Swelling/neck,face,throat Home Medications: Medication Instructions Recorded Potassium Citrate 01/19/18 traMADol [Ultram 50 mg (*)] 50 - 100 mg PO Q4 PRN #20 tab 01/19/18 Hydrocodone/APAP 5/325 [[place] 1 - 2 tab PO Q4-6PRN PRN #7 tab 03/04/18 5/325 (*)] Medical Decision Making - Diagnostics Imaging Results: Imaging Impressions Ankle X-Ray 03/04/18 12:32 Impression: 1. Moderate right ankle osteoarthritis. Foot X-Ray 03/04/18 12:32 Impression: Moderate right ankle osteoarthritis; otherwise negativeright foot radiographs. - Data Points Medications Given: Discontinued Medications Hydrocodone Bitart/Acetaminophen ([place] 5/325) 2 tab PO EDNOW ONE Stop: 03/04/18 12:33 Last Admin: 03/04/18 12:51 Dose: 2 tab Departure - Departure Disposition: Home, Routine, Self-Care Clinical Impression: Plantar fasciitis of right foot Condition: Good Instructions: Plantar Fasciitis (ED) Additional Instructions: Read and follow provided instructions. Follow-up with Podiatry as discussed for re-evaluation in the next 1-2 days. Narcotic pain medication dosin-2 every 4-6 hours as needed for pain. Weight-bearing to your right foot as tolerated only. Return to the emergency department for worsening pain, swelling, warmth, redness , discoloration loss of sensation or numbness or other serious concerns. Referrals: Tal Eden DPM [Doctor of Podiatric Medicine] - As per Instructions Prescriptions: Hydrocodone/APAP 5/325 [[place] 5/325 (*)] 1 - 2 tab PO Q4-6PRN PRN #7 tab PRN Reason: Pain, Moderate
[2018-03-04 13:37] VITALS: BP 108/72
== END 2018-03-04 13:22 | disposition home or self-care (01) ==
LOC: CED 12:10
DX: M72.2 Plantar fascial fibromatosis (principal); M19.071 Primary osteoarthritis, right ankle and foot
CPT/HCPCS: 73600-PO; 73620-PO

== ENCOUNTER 2018-03-05 12:36 | Emergency (ER) | payer OTHER ==
[2018-03-05 13:02] VITALS: BP 140/84
--- NOTE | 2018-03-05 13:16 | EDPHY ---
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 He has been unable to bear weight due to the pain is using crutches. Patient was seen yesterday in the ED for the same and had x-ray which was negative at that time and he was diagnosed with plantar fasciitis. Has not felt there was any evidence of infection. He returns today because he has been taking Vicodin at home without any relief. Patient states that although he has chronic pain and swelling in that foot this is much worse than typical and he does not think it is usually red. Patient was supposed to have urologic procedure done on Friday , however he canceled that procedure because of the severe foot pain. Patient also has a history of gout which she has had before in his knee. REVIEW OF SYSTEMS: As in HPI, and all other systems reviewed and are negative Smoking Status: Never smoked Physical Exam: General Appearance: Alert and somewhat uncomfortable appearing, nontoxic. Head: Normocephalic, atraumatic Eyes: Pupils equal and round no injection. Extraocular movements are intact. Musculoskeletal: Neck is supple and nontender. Extremities: Right foot positive well-healed surgical scar over medial ankle, positive diffuse swelling of ankle and dorsum of foot with erythema on the dorsum and tenderness over the dorsum and medial aspects as well as tender over the heel. Patient has decreased range of motion of toes and ankle secondary to pain. There is full range of motion actively. DP pulses 2+ and equal to the left. distal sensation is intact. Skin: No rashes or lesions except as described above. Constitutional: Initial Vital Signs Temperature (C) 36.7 C 03/05/18 12:44 Heart Rate 85 03/05/18 12:44 Respiratory Rate 16 03/05/18 12:44 Blood Pressure 140/84 H 03/05/18 12:44 O2 Sat (%) 95 03/05/18 12:44 O2 Delivery Mode Room Air Allergies/Adverse Reactions: ibuprofen Allergy (Intermediate, Verified 03/05/18 12:42) Hives Penicillins Allergy (Intermediate, Verified 12/13/18 12:42) Swelling/neck,face,throat Home Medications: Medication Instructions Recorded Potassium Citrate 01/19/18 traMADol [Ultram 50 mg (*)] 50 - 100 mg PO Q4 PRN #20 tab 01/19/18 Hydrocodone/APAP 5/325 [[place] 1 - 2 tab PO Q4-6PRN PRN #7 tab 03/04/18 5/325 (*)] Cephalexin 500 mg PO BID #20 capsule 03/05/18 Hydrocodone/APAP 5/325 [[place] 1 - 2 tab PO Q4H PRN #10 tab 03/05/18 5/325 (*)] MDM/Departure - [facility] ED Course/Re-evaluation: 47-year-old man with chronic pain and swelling presents with acute worsening of his chronic condition with associated redness and swelling which are atypical for him by history. Given the fact that he is not getting improved unusual pain medicines will go ahead and treat him for presumed cellulitis. Patient has a history of penicillin allergy but states he has taken Keflex in the past without difficulty. Review of old records shows that he has had IV Ancef without any reaction. Therefore will start the patient on Keflex. I did discuss this with the patient. He was given a single dose of oral Dilaudid in the emergency department for severe pain will be discharged home with another prescription for Vicodin. I am recommending he follow up with his orthopedic surgeon who is more familiar with his baseline pain and swelling of his foot, but to return if there is any new worsening or new problems. Patient is mother understand agreeable to this plan. - Depart Disposition: Home, Routine, Self-Care Clinical Impression: Cellulitis of right foot Condition: Good Instructions: Cellulitis (ED) Additional Instructions: You were seen by Dr. Renay Teixeira today. Take Keflex as prescribed for foot infection twice daily. I recommend taking probiotics in between doses of antibiotics. Keep her foot elevated above the level of the heart. Continue to ice it. Take [place] as needed for pain. Please follow-up with your foot orthopedic surgeon. Return for any worsening or new concerns. Prescriptions: Cephalexin 500 mg PO BID #20 capsule Hydrocodone/APAP 5/325 [[place] 5/325 (*)] 1 - 2 tab PO Q4H PRN #10 tab PRN Reason: Pain, Moderate Referrals: Mara Ortiz PA [Primary Care Provider] - As per Instructions
[2018-03-05] MEDS ORDERED: HYDROmorphONE/DILAUDID 2 MG TAB PO ONE (13:17)
[2018-03-05] MEDS ORDERED: CEPHALEXIN 500 MG CAP PO ONE (13:20)
== END 2018-03-05 13:30 | disposition home or self-care (01) ==
LOC: CED 12:36
DX: L03.115 Cellulitis of right lower limb (principal)

== ENCOUNTER 2018-03-06 09:06 | Emergency (ER) | payer OTHER ==
[2018-03-06 09:18] VITALS: BP 137/88
--- NOTE | 2018-03-06 09:21 | EDPHY ---
H & P Stated Complaint: 3rd visit for pain/swelling , worse swelling today Time Seen by Provider: 03/06/18 09:12 HPI/ROS: 42 yo M with known history of monosodium urate cyrstals, GOUT, on left knee analysis last August presents for the 3rd day in a row with right lower extremity pain, no fever. Initially diagnosed with plantar fascitis on the first day, and then with possible cellulitis on the second visit, and now returns because he continues to have pain over specific joint areas with some swelling and redness. Of note he recently stopped his Allopurinol for upcoming surgery. He also continues to both drink alcohol and eat red meat. Review of systems As per HPI General no fever no chills no weakness HEENT no eye pain no eye discharge. No eye redness, no sore throat Respiratory no cough, no shortness of breath Cardiac no chest pain, no peripheral edema GI no abdominal pain, no diarrhea, no constipation, no nausea, no vomiting no flank pain, no hematuria, no dysuria Musculoskeletal no myalgias, pos joint pain Heme no easy bruising, no easy bleeding Endo no polyuria, no polydipsia Skin no rashes, no pruritus Neuro no syncope, no dizziness, no headaches Psych is no suicidal ideation, no homicidal ideation 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 Kidney stone. GOUT - Family History Significant Family History: No pertinent family hx - Social History Smoking Status: Never smoked Alcohol Use: Occasionally Drug Use: None - Physical Exam Exam: 42 yo M alert and oriented in NAD non toxic appearance, afebrile at, nc neck supple lungs cta bilat heart rrr abd nabs soft nt ext right lower ext mild swelling right knee with ttp, from , calf non tender and no swelling, no lymphangitic streaks right foot with erythema and ttp at medial arch and over first metatarsal good cap refill, good pt, dp Constitutional: Initial Vital Signs Temperature (C) 37.2 C 03/06/18 09:14 Heart Rate 95 03/06/18 09:14 Respiratory Rate 16 03/06/18 09:14 Blood Pressure 137/88 H 03/06/18 09:14 O2 Sat (%) 96 03/06/18 09:14 O2 Delivery Mode Room Air Allergies/Adverse Reactions: ibuprofen Allergy (Intermediate, Verified 03/06/18 09:18) Hives Penicillins Allergy (Intermediate, Verified 03/06/18 09:18) Swelling/neck,face,throat Home Medications: Medication Instructions Recorded Potassium Citrate 01/19/18 traMADol [Ultram 50 mg (*)] 50 - 100 mg PO Q4 PRN #20 tab 01/19/18 Hydrocodone/APAP 5/325 [[place] 1 - 2 tab PO Q4-6PRN PRN #7 tab 03/04/18 5/325 (*)] Cephalexin 500 mg PO BID #20 capsule 03/05/18 Hydrocodone/APAP 5/325 [[place] 1 - 2 tab PO Q4H PRN #10 tab 03/05/18 5/325 (*)] methylPREDNISolone [Medrol Dose 4 mg PO DAILY #1 ea 03/06/18 Nicholas] Medical Decision Making ED Course/Re-evaluation: Pt seen and evaluated for swelling and pain in his right lower ext. He has two areas of pain one in the great toe and medial arch of his foot and the second in his knee. No labs were sent Pt is afebrile. Pt recently stopped his gout meds for upcoming surgery and has been eating both meat and drinking alcohol. Imp Gout Plan Prednisone 60 mg po now Pt to continue abx started by ED yesterday, though cellulitis less likely. Start Medrol Dose pack tomorrow Follow up with primary care. Differential Diagnosis: differential diagnosis considered but not limited to: cellulitis, joint infection, gout, dvt - Data Points Medications Given: Discontinued Medications Prednisone (Prednisone) 60 mg PO EDNOW ONE Stop: 03/06/18 09:34 Last Admin: 03/06/18 09:40 Dose: 60 mg Departure - Departure Disposition: Home, Routine, Self-Care Clinical Impression: Gout attack Condition: Good Instructions: Low Purine Diet (ED), Gout (ED) Referrals: Mara Ortiz PA [Primary Care Provider] - As per Instructions Prescriptions: methylPREDNISolone [Medrol Dose Nicholas] 4 mg PO DAILY #1 ea
[2018-03-06] MEDS ORDERED: predniSONE 20 MG TAB PO ONE (09:33)
== END 2018-03-06 09:50 | disposition home or self-care (01) ==
LOC: CED 09:06
DX: M10.9 Gout, unspecified (principal)
CPT/HCPCS: J7512

== ENCOUNTER 2018-03-22 12:28 | Emergency (ER) | payer OTHER ==
--- NOTE | 2018-03-22 13:24 | EDPHY ---
H & P Stated Complaint: Right leg swelling since . Time Seen by Provider: 03/22/18 13:23 HPI/ROS: HPI: This is a 42-year-old male who presents with Chief Complaint: Right leg swelling since . Location: Right knee Quality: Swelling Duration: 24 hr Signs and Symptoms: No bleeding, no radiation, no numbness, no weakness, no tingling, no incontinence, + decreased range of motion, + swelling, + pain, no fever Timing: Acute, rapid onset Severity: Moderate Context: Patient has a history of multiple orthopedic injuries and repairs presents with right knee swelling that started last night and has worsened over the last 12 hr. He reports that pain is increased with flexion. He has a history of pseudogout. He has been seen 4 times in the emergency room over this last month for different orthopedic complaints. No recent foreign travel. Follows with Dr. Camarena for orthopedics Modifying Factors: None Comment: ROS: A comprehensive 10 system review of systems is otherwise negative aside from elements mentioned in the history of present illness. 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 Employed. Works in a restaurant. CONSTITUTIONAL: Well-developed, well-nourished, male, awake and alert , no obvious distress HEENT: Atraumatic and normocephalic. NECK: supple EXTREMITIES: 2/2 pulses, strength 5/5, right KNEE: Moderate suprapatellar effusion, no medial and lateral joint line tenderness, full extension to 180, flexion to 120. No pain with varus and valgus exam. No pain with anterior drawer or posterior drawer test. Extensor mechanism intact. DIP/PIP/MCP flexion/ extension intact with good light touch sensation. no deformities, no clubbing, no cyanosis or edema. NEUROLOGICAL: no focal neuro deficits. GCS 15. Light touch sensation intact. Tic: Open and closes eyes numerous times. SKIN: Warm and dry, no erythema. no rash. Good capillary refill. 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 Kidney stone. GOUT - Social History Smoking Status: Never smoked Constitutional: Initial Vital Signs Temperature (C) 36.6 C 03/22/18 12:31 Heart Rate 82 03/22/18 12:31 Respiratory Rate 16 03/22/18 12:31 Blood Pressure 125/76 H 03/22/18 12:31 O2 Sat (%) 96 03/22/18 12:31 O2 Delivery Mode Room Air Allergies/Adverse Reactions: ibuprofen Allergy (Intermediate, Verified 03/06/18 09:18) Hives Penicillins Allergy (Intermediate, Verified 03/06/18 09:18) Swelling/neck,face,throat Home Medications: Medication Instructions Recorded Potassium Citrate 01/19/18 Medical Decision Making - Diagnostics Imaging Results: Imaging Impressions Knee X-Ray 03/22/18 13:36 Impression: Knee effusion. No arthropathy, fracture or bone lesion. Procedures: Procedure: Arthrocentesis. After verbal informed consent was obtained explaining the risks including but not limited to infection and bleeding a arthrocentesis was performed on the right knee. The patient was prepped and draped in the usual sterile fashion. The joint was NOT anesthetized. Approximately 25 mL of of clear straw fluid was obtained. There were no complications. Fluid was sent for analysis. The procedure was performed by myself. Procedure: Splint placement. A right knee immobilizer was applied. After application of the splint I returned and re-examined the patient. The splint was adequately immobilizing the joint and distal to the splint the patient's circulation and sensation was intact. ED Course/Re-evaluation: Vital signs reviewed and stable upon arrival. Right knee x-ray ordered my read shows no fracture, dislocation. + moderate suprapatellar effusion noted Arthrocentesis performed and sent for synovial fluid analysis Knee immobilizer and orthopedic follow-up No signs of neurovascular compromise/tenting of skin/compartment syndrome/ extremities and joints examined above and below area of concern and are neurovascularly intact. This patient was seen under the supervision of my secondary supervising physician. I evaluated care for this patient independently. Discussed this patient with Dr. Nunes who did not see the patient. Differential Diagnosis: Knee injury while [] including but not limited to fracture, ACL injury, contusion, muscular strain, and meniscus injury. - Data Points Laboratory Results: 03/22/18 14:19 Synovial Crystals Pending Departure - Departure Disposition: Home, Routine, Self-Care Clinical Impression: Suprapatellar bursitis of right knee, Effusion of knee joint right Condition: Good Instructions: Knee Bursitis (ED), Knee Immobilizer (ED) Additional Instructions: Wear the knee immobilizer while out of bed for the next 2 days. After 48 hours, you may remove the knee immobilizer. Take Tylenol 650 mg every 4 hours and/or Ibuprofen 600 mg every 8 hours with food as needed for pain. Apply ice for 30 minutes at a time; 2-3 times per day for the next 1-2 days. Follow up with Orthopedics in 5-7 days at which time they will evaluate and recommend with you if conservative management versus further imaging is indicated. Referrals: Mara Ortiz PA [Primary Care Provider] - As per Instructions WILTON CAMARENA [Non Staff Provider ()] - As per Instructions
[2018-03-22 14:42] VITALS: BP 113/77
== END 2018-03-22 14:42 | disposition home or self-care (01) ==
PROC: 0S9C3ZZ Drainage of Right Knee Joint, Percutaneous Approach (ICD-10-PCS; principal; 2018-03-22)
DX: M70.51 Other bursitis of knee, right knee (principal); M25.461 Effusion, right knee
CPT/HCPCS: L1830

== ENCOUNTER 2018-03-27 09:28 | Emergency (ER) | payer OTHER ==
--- NOTE | 2018-03-27 10:33 | EDPHY ---
H & P Stated Complaint: r knee joint drained 03/22 increased pain swelling into r leg/ foot Time Seen by Provider: 03/27/18 09:42 HPI/ROS: CHIEF COMPLAINT: Right knee and leg pain HISTORY OF PRESENT ILLNESS: 42-year-old male via private vehicle complaining of continued right knee pain. The patient has been seen emergency department multiple times recently for similar complaints, see below. On March 04 he was seen a [facility] Emergency Department had negative right foot and ankle x-rays discharge with analgesia. On March 05 he was seen at [facility] Emergency Department diagnosed with cellulitis of the right foot discharged with Keflex which he completed. On March 06 2 seen at [facility] treated for gout and given Medrol Dosepak On March 22 he was seen [facility] Emergency Department had negative x-ray of the right knee, arthrocentesis of the right knee which is negative for septic arthritis and negative for growth on cultures. Today he presents complaining of continued right knee pain but describes shooting pain to his right calf as well as described as a cramping sensation. No new trauma. No fever or chills. No discoloration. PRIMARY CARE PROVIDER: REVIEW OF SYSTEMS: 10 systems reviewed and negative with the exception of the elements mentioned in the history of present illness PAST MEDICAL & SURGICAL HISTORY: Avascular necrosis. Gout. SOCIAL HISTORY:Nonsmoker. No drug use. PHYSICAL EXAM (Prior to examination, patient consented to physical exam, hands were washed and my usual and customary physical exam procedures followed) 1) GENERAL: Well-developed, well-nourished, alert and oriented. Appears uncomfortable. 2) HEAD: Normocephalic, atraumatic 3) HEENT: Pupils equal, round, reactive to light bilaterally. Sclera anicteric. 4) NECK: Full range of motion, no meningeal signs. 5) LUNGS: Clear auscultation bilaterally, no wheezes, no rhonchi, no retractions. 6) HEART: Regular rate and rhythm, no murmur, no heave, no gallop. 7) ABDOMEN: No guarding, no rebound, no focal tenderness, negative McBurney's, negative Cueto's, negative Rovsing's, negative peritoneal sign, 8) MUSCULOSKELETAL: Right lower extremity: DP PT pulses present and brisk. Soft compartments throughout. Normal coloration. Normal temperature. Tender to palpation right anterolateral aspect of the knee with effusion noted. Normal coloration. No pain with axial loading of the joint. Tender to palpation right lateral ankle and right lateral foot. 9) BACK: No CVA tenderness, no midline vertebral tenderness, no fluctuance, no step-off, no obvious trauma, no visual or palpable abnormality. 10) SKIN: No rash, no petechiae. 11) Psychiatric: Patient is oriented X 3, there is no agitation. 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 Kidney stone. GOUT - Social History Smoking Status: Never smoked Constitutional: Initial Vital Signs Temperature (C) 36.4 C 03/27/18 09:33 Heart Rate 86 03/27/18 09:33 Respiratory Rate 17 03/27/18 09:33 Blood Pressure 133/76 H 03/27/18 09:33 O2 Sat (%) 98 03/27/18 09:33 O2 Delivery Mode Room Air Allergies/Adverse Reactions: ibuprofen Allergy (Intermediate, Verified 03/27/18 09:33) Hives Penicillins Allergy (Intermediate, Verified 03/27/18 09:33) Swelling/neck,face,throat Home Medications: Medication Instructions Recorded Potassium Citrate 01/19/18 HYDROcodone/APAP 10325 [[place] 1 each PO Q6 #10 tab 03/27/18 10325 (*)] Medical Decision Making - Diagnostics Imaging Results: Imaging Impressions Extremity Venous Study 03/27/18 10:30 Impression: No deep venous thrombosis right leg. Results called and discussed with Cory Daily PA-C, at 03/27/2018 11:06. ED Course/Re-evaluation: 10:30 a.m.: Old medical records reviewed. Care of patient under supervision of secondary supervising physician Dr Ramos with whom I discussed case. 1204 p.m.: Re-evaluation, patient given oral analgesia. This time he is sleeping appears comfortable. He has negative DVT ultrasound. Negative CK, normal white blood cell count. Doubt acute infectious etiology. I have offered admission for pain control which he declines. He would like to know whether he can get in to see an orthopedic surgeon sooner than his late March appointment in [place]. Today is Friday. 12:28 p.m.: Spoke with [facility] and they have no availability for today (Friday). I again offered admission to hospital and patient declines. He will plan on contacting [facility] or his orthopedic surgeon in [place] to see if he can be seen sooner. Meantime will be discharged with analgesia, usual customary orthopedic precautions instructions provided. Most recent exam at this time he has brisk pulses, soft compartments. Doubt compartment syndrome. Doubt ischemia. Feels comfortable being discharged. - Data Points Laboratory Results: Laboratory Results 03/27/18 11:15 03/27/18 11:15 03/27/18 03/27/18 11:15 11:15 WBC 7.82 10^3/uL 10^3/uL (3.80-9.50) RBC 5.48 10^6/uL 10^6/uL (4.40-6.38) Hgb 15.9 g/dL g/dL (13.7-17.5) Hct 47.5 % % (40.0-51.0) MCV 86.7 fL fL (81.5-99.8) MCH 29.0 pg pg (27.9-34.1) MCHC 33.5 g/dL g/dL (32.4-36.7) RDW 12.0 % % (11.5-15.2) Plt Count 253 10^3/uL 10^3/uL (150-400) MPV 9.3 fL fL (8.7-11.7) Neut % (Auto) 67.4 % % (39.3-74.2) Lymph % (Auto) 19.7 % % (15.0-45.0) [place] % (Auto) 9.5 % % (4.5-13.0) Eos % (Auto) 2.7 % % (0.6-7.6) Baso % (Auto) 0.4 % % (0.3-1.7) Nucleat RBC Rel Count 0.0 % % (0.0-0.2) Absolute Neuts (auto) 5.28 10^3/uL 10^3/uL (1.70-6.50) Absolute Lymphs (auto) 1.54 10^3/uL 10^3/uL (1.00-3.00) Absolute Monos (auto) 0.74 10^3/uL 10^3/uL (0.30-0.80) Absolute Eos (auto) 0.21 10^3/uL 10^3/uL (0.03-0.40) Absolute Basos (auto) 0.03 10^3/uL 10^3/uL (0.02-0.10) Absolute Nucleated RBC 0.00 10^3/uL 10^3/uL (0-0.01) Immature Gran % 0.3 % % (0.0-1.1) Immature Gran # 0.02 10^3/uL 10^3/uL (0.00-0.10) Sodium 138 mEq/L mEq/L (135-145) Potassium 5.0 mEq/L mEq/L (3.5-5.2) Chloride 106 mEq/L mEq/L (97-110) Carbon Dioxide 27 mEq/l mEq/l (22-31) Anion Gap 5 mEq/L L mEq/L (6-14) BUN 16 mg/dL mg/dL (7-23) Creatinine 0.9 mg/dL mg/dL (0.7-1.3) Estimated GFR > 60 Glucose 97 mg/dL mg/dL (70-100) Calcium 9.2 mg/dL mg/dL (8.5-10.4) Creatine Kinase 81 IU/L IU/L (0-224) Medications Given: Discontinued Medications Hydrocodone Bitart/Acetaminophen ([place] 10/325) 1 tab PO EDNOW ONE Stop: 03/27/18 10:35 Last Admin: 03/27/18 10:59 Dose: 1 tab Departure - Departure Disposition: Home, Routine, Self-Care Clinical Impression: Right knee pain Qualifiers: Chronicity: acute Qualified Code(s): M25.561 - Pain in right knee Condition: Good Instructions: Knee Pain (ED) Additional Instructions: Return to the ER immediately if you experience discoloration, have worsening pain, numbness, tingling, or any other symptoms that concern you. If you received x-rays in the emergency department today, be advised, that ligamentous , tendon, muscular, and other non-bony injury cannot be fully ruled out. Try to keep your affected extremity elevated above the level of your chest, and keep cold packs on the affected area, for the next 48 hours. Referrals: Eugenie Brower MD [Medical Doctor] - 2-3 days, call for appt. Prescriptions: HYDROcodone/APAP [[place] 10/325 (*)] 1 each PO Q6 #10 tab
[2018-03-27] MEDS ORDERED: HYDROCODONE/APAP 10/325 TAB PO ONE (10:34)
[2018-03-27 11:30] LABS: PLATELET COUNT 253 10^3/uL (150-400)
[2018-03-27 11:51] LABS: CREATINE KINASE 81 IU/L (0-224)
[2018-03-27 13:02] VITALS: BP 123/73
== END 2018-03-27 13:01 | disposition home or self-care (01) ==
DX: M25.561 Pain in right knee (principal); Z88.0 Allergy status to penicillin

== ENCOUNTER → 2018-05-14 | Outpatient (CLI) | payer OTHER | LOC: CIMAGING 11:00 | DX: N20.0 Calculus of kidney (principal) | CPT/HCPCS: 74018-PO ==

== ENCOUNTER → 2018-08-07 | Outpatient (CLI) | payer OTHER | LOC: CIMAGING 07:58 | PROVIDERS: ATTEND Urology | DX: R10.9 Unspecified abdominal pain (principal); N20.0 Calculus of kidney | CPT/HCPCS: 74018-PO ==